=== PATIENT | male | born 1930 | race Caucasian/White ===

== ENCOUNTER → 2017-09-05 | Outpatient (CLI) | payer MEDICARE, OTHER ==
[~2017-09-05] MED LIST: ASPI81CH PO; ATEN25 PO; ATEN50 PO; ATOR20 PO; Avastin25 MG/ML INJ; ISOMON60ER PO; Isosorbide Mono60 MG PO; LEVFLO500 PO; Preservision A1 EACH PO; RANO500T PO; TORSE20 PO
== END ==
LOC: LAB 12:13
DX: Z48.817 Encounter for surgical aftercare following surgery on the skin and subcutaneous tissue (principal); L08.9 Local infection of the skin and subcutaneous tissue, unspecified
CPT/HCPCS: 87070; 87077; 87186; 87205

== ENCOUNTER 2019-04-30 05:53 | Inpatient (IN) | payer MEDICARE, OTHER ==
[~2019-04-30] VITALS: Ht 172.7 cm; Wt 76.0 kg
[2019-04-30] MEDS ORDERED: METO25ER PO (06:40)
--- NOTE | 2019-04-30 10:08 | NUR ---
PT ARRIVED BACK TO RECOVERY ROOM IN BED. RIGHT GROIN SITE SOFT NON-TENDER WITH NO HEMATOMA AND SLIGHT TRACK OOZING NOTED; INTACT STABLE DRESSING. PT DENIES CHEST PAIN AND CALL LIGHT IN REACH.
--- NOTE | 2019-04-30 10:33 | NUR ---
PT DENIES PAIN EXCEPT FOR RIGHT KNEE CHRONIC "SORENESS." PT'S IN ROOM; PT IS DRINKING COFFEE.
--- NOTE | 2019-04-30 11:42 | NUR ---
RIGHT GROIN SITE STILL SOFT NON-TENDER WITH NO HEMATOMA AND NO PULSATILE BLEEDING.
--- NOTE | 2019-04-30 12:02 | NUR ---
DR SRIVASTAVA IN ROOM TO SEE PT AND HIS .
--- NOTE | 2019-04-30 13:18 | NUR ---
PT ARRIVED TO ROOM AT 1250. DRESSING CHANGED WITH GAUZE APPLIED TO BETWEEN LEG AND GROIN TO DETECT FURTHER BLEEDING. HAD TO HOLD PRESSURE FOR 20 MINUTES DUE TO OOZING. NEW THERESE APPLIED WITH WITH LINE DRAWN AROUND OOZING NOTED ON DRESSING. PT'S AWARE OF ROOM ASSIGNMENT
--- NOTE | 2019-04-30 14:07 | NUR ---
PT'S GROIN SITE WITHOUT FURTHER BLEEDING. PT SITTING UP 30 DEGREES AT THIS TIME. DENIES NEEDS OR CONCERNS.
--- NOTE | 2019-04-30 18:19 | NUR ---
SHIFT SUMMARY: PT'S RIGHT GROIN SITE WITHOUT ANY FURTHER OOZING OR SIGNS OF HEMATOMA. PT HAS STOOD AT SIDE OF THE BED WITHOUT FURTHER ISSUE. FAMILY AT BEDSIDE. NO FURTHER NEEDS OR CONCERNS AT THIS TIME.
--- NOTE | 2019-04-30 22:14 | NUR ---
ASSUMED CARE NOTE: ASSUMED CARE OF PT AT 1900, RECEIVED REPORT FROM FRANK HOLLINGSWORTH. PT IS ALERT AND ORIENTED X4. PT CONTINUES TO BE ON RA WITH SPO2 ABOVE 90%. PT DENIES ANY CHEST PAIN, OR SOB. NSR WITH HR IN THE 70'S. RIGHT GRION (CATH INSERTION SITE) IS INTACT AND NO ACTIVE BLEEDING, NOR HEMATOMA NOTED. PT CONTINUES TO USE URINAL. BED AT LOWEST LEVEL, CALL LIGHT WITHIN REACH. WILL CONTINUE TO MONITOR PT T/O SHIFT.
[2019-05-01 03:27] LABS: BASOPHILS ABSOLUTE AUTO 0.04 K/mm3 (0.00-0.23); BASOPHILS PERCENT AUTO 1 % (0-2); EOSINOPHILS ABSOLUTE AUTO 0.26 K/mm3 (0.00-0.68); EOSINOPHILS PERCENT AUTO 3 % (0-6); Hemoglobin 11.1 g/dL (13.5-17.5); IMMATURE GRAN ABSOLUTE AUTO 0.01 K/mm3 (0.00-0.10); IMMATURE GRAN PERCENT AUTO 0 % (0-1); LYMPHOCYTES ABSOLUTE AUTO 1.74 K/mm3 (0.84-5.20); LYMPHOCYTES PERCENT AUTO 22 % (21-46); MONOCYTES ABSOLUTE AUTO 0.72 K/mm3 (0.16-1.47); MONOCYTES PERCENT AUTO 9 % (4-13); Mean Corpuscular HGB Conc 33.6 g/dL (31.5-36.5); Mean Corpuscular Volume 101 fL (80-100); Mean Platelet Volume 10.5 fL (9.1-12.4); NEUTROPHILS ABSOLUTE AUTO 5.26 K/mm3 (1.96-9.15); NEUTROPHILS PERCENT AUTO 66 % (41-73); Platelet Count 152 K/mm3 (150-400); RDW Standard Deviation 45.1 fL (35.1-46.3); Red Blood Cell Count 3.26 M/mm3 (4.30-5.90); White Blood Cell Count 8.03 K/mm3 (4.00-11.30)
[2019-05-01 03:50] LABS: Albumin, Blood 3.1 g/dL (3.4-5.0); Albumin/Globulin Ratio 1.2 (0.8-1.8); Bilirubin, Total 0.5 mg/dL (0.1-1.0); Bun/Creatinine Ratio 12.8 (12.0-20.0); Calcium, Blood 8.3 mg/dL (8.5-10.1); Creatinine, Blood 1.49 mg/dL (0.60-1.20); Globulin, Blood 2.6 g/dL (2.2-4.0); Potassium, Blood 4.8 mmol/L (3.5-5.5); Total Protein, Blood 5.7 g/dL (6.4-8.2)
--- NOTE | 2019-05-01 05:19 | NUR ---
SHIFT SUMMARY: NO SIGNIFICANT CHANGES DURING SHIFT. PT REMAINS ALERT AND ORIENTED. PT CONTINUES TO BE ON RA WITH SPO2 REMAINING ABOVE 90%. NSR WITH HR IN THE 70'S. PT DENIES ANY CHEST PAIN, OR SOB. PT WAS OFFERED ORAL CARE DURING SHIFT, HOWEVER, PT REFUSED. PT HAS BEEN DRINKING THIN LIQUIDS DURING SHIFT W/O ISSUES. PT RIGHT GRION ( CATH INSERTION SITE) IS INTACT WITH NO ACTIVE BLEEDING NOTED, NOR HEMATOMA. PT HAS REPOSITIONED SELF DURING SHIFT. WILL CONTINUE TO MONTIOR PT UNTIL REPORT IS GIVEN TO ONCOMING SHIFT.
--- NOTE | 2019-05-01 07:28 | NUR ---
ASSUMED CARE: PT SITTING UPRIGHT IN BED. ALERT AND ORIENTED. GROIN SITE WITH NO NEW DRAINAGE. NSR ON TELE. DENIES CONCERNS AT THIS TIME.
[2019-05-01] MEDS ORDERED: CLOP75 PO (10:44)
--- NOTE | 2019-05-01 12:00 | NUR ---
PT DC'D HOME WITH INSTRUCTIONS ON FOLLOW UP APPOINTMENTS AND NEW MEDICATIONS. INSTRUCTED PT THAT PLAVIX WILL INCREASE LIKELIHOOD OF BLEEDING AND BRUISING AND TO MONITOR CLOSELY. SEEK MEDICAL ATTENTION IF HITS HEAD OR NOTICES LARGE BRUISING OR BLEEDING THAT WON'T STOP. IV DC'D WNL. AMBULATORY UPON DC AND ESCORTED OUT BY HOSPITAL STAFF. DENIED FURTHER NEEDS OR CONCERNS.
== END 2019-05-01 09:05 | disposition home or self-care (01) | DRG 247 ==
LOC: MHTC 05:53 → ICUE 10:37 → ICUW 10:37 → MHTC 10:37 → ICUE 12:17
PROVIDERS: Internal Medicine Interventional Cardiology; ADMIT Internal Medicine Cardiovascular Disease
PROC: 4A023N7 Measurement of Cardiac Sampling and Pressure, Left Heart, Percutaneous Approach (ICD-10-PCS; principal; 2019-04-30)
PROC: 027034Z Dilation of Coronary Artery, One Artery with Drug-eluting Intraluminal Device, Percutaneous Approach (ICD-10-PCS; 2019-04-30)
PROC: B210YZZ Fluoroscopy of Single Coronary Artery using Other Contrast (ICD-10-PCS; 2019-04-30)
DX: I25.10 Atherosclerotic heart disease of native coronary artery without angina pectoris (principal); R94.39 Abnormal result of other cardiovascular function study; E78.5 Hyperlipidemia, unspecified; I10 Essential (primary) hypertension; Z87.891 Personal history of nicotine dependence; Z79.82 Long term (current) use of aspirin; I25.82 Chronic total occlusion of coronary artery
CPT/HCPCS: 36415; 80053; 85025; 85347; 92978; 93455; 93458; 99152; 99153; A9270; C1725; C1753; C1760; C1769; C1874; C1887; C1894; C9600; J0360; J1644; J2250; J3010; J7030; J7040; Q9967

== ENCOUNTER 2019-08-14 06:58 | Inpatient (IN) | payer OTHER, MEDICARE ==
[~2019-08-14] VITALS: Ht 170.2 cm; Wt 74.4 kg
[~2019-08-14 06:58] MED LIST changes: +CLOP75 PO; +METO25ER PO
[2019-08-14] MEDS ORDERED: TORSE20 PO (07:23)
[2019-08-14 07:40] LABS: BASOPHILS ABSOLUTE AUTO 0.02 K/mm3 (0.00-0.23); BASOPHILS PERCENT AUTO 0 % (0-2); EOSINOPHILS ABSOLUTE AUTO 0.09 K/mm3 (0.00-0.68); EOSINOPHILS PERCENT AUTO 1 % (0-6); Hematocrit 24.5 % (37.0-53.0); Hemoglobin 8.6 g/dL (13.5-17.5); IMMATURE GRAN ABSOLUTE AUTO 0.04 K/mm3 (0.00-0.10); IMMATURE GRAN PERCENT AUTO 1 % (0-1); LYMPHOCYTES ABSOLUTE AUTO 1.79 K/mm3 (0.84-5.20); LYMPHOCYTES PERCENT AUTO 20 % (21-46); MONOCYTES ABSOLUTE AUTO 0.81 K/mm3 (0.16-1.47); MONOCYTES PERCENT AUTO 9 % (4-13); Mean Corpuscular HGB Conc 35.1 g/dL (31.5-36.5); Mean Corpuscular Volume 97 fL (80-100); Mean Platelet Volume 10.1 fL (9.1-12.4); NEUTROPHILS ABSOLUTE AUTO 6.05 K/mm3 (1.96-9.15); NEUTROPHILS PERCENT AUTO 69 % (41-73); Platelet Count 200 K/mm3 (150-400); RDW Coefficient Variation 12.2 % (11.7-14.2); RDW Standard Deviation 43.7 fL (35.1-46.3); Red Blood Cell Count 2.53 M/mm3 (4.30-5.90)
[2019-08-14 07:54] LABS: Alanine Aminotransfer (ALT/SGP 13 U/L (12-78); Albumin/Globulin Ratio 1.1 (0.8-1.8); Anion Gap 10 mmol/L (6-16); Aspartate Aminotrans (AST/SGOT 17 U/L (12-37); Bilirubin, Total 0.4 mg/dL (0.1-1.0); Blood Urea Nitrogen 51 mg/dL (8-24); Bun/Creatinine Ratio 42.9 (12.0-20.0); CO2, Blood 21 mmol/L (21-32); Calcium, Blood 8.2 mg/dL (8.5-10.1); Chloride, Blood 98 mmol/L (98-108); Creatinine, Blood 1.19 mg/dL (0.60-1.20); Globulin, Blood 2.8 g/dL (2.2-4.0); Glomerular Filtration Rate >60 (60-); Glucose, Blood 116 mg/dL (70-99); Potassium, Blood 4.5 mmol/L (3.5-5.5); Sodium, Blood 129 mmol/L (136-145); Total Protein, Blood 5.8 g/dL (6.4-8.2)
[2019-08-14 07:56] LABS: Alk Phos 79 U/L (50-136); Troponin I <0.015 ng/mL (0.000-0.040)
[2019-08-14 08:25] LABS: Source, Urine Clean Catch
[2019-08-14 08:31] LABS: Bilirubin, Urine Neg (Neg); Blood, Urine 1+ (Neg); Glucose Qualitative, Urine Neg (Neg); Ketones, Urine Neg (Neg); Leukocyte Esterase, Urine 1+ (Neg); Nitrite, Urine Neg (Neg); Protein, Urine Neg (Neg); Specific Gravity, Urine 1.015 (1.003-1.022); Urobilinogen, Urine NORM (Normal)
[2019-08-14 08:41] LABS: Appearance, Urine Clear (Clear); Color, Urine Yellow (P-Yellow)
[2019-08-14 08:43] LABS: Bacteria Rare /hpf; Squamous Epithelial Cells Rare /hpf (Few); White Blood Cells, Urine 0-2 /hpf (0-5)
[2019-08-14 11:18] LABS: Hematocrit 22.3 % (37.0-53.0); Hemoglobin 7.8 g/dL (13.5-17.5); Mean Corpuscular HGB 33.9 pg (26.0-34.0); Mean Corpuscular Volume 97 fL (80-100); Mean Platelet Volume 10.1 fL (9.1-12.4); Platelet Count 188 K/mm3 (150-400); RDW Coefficient Variation 12.3 % (11.7-14.2)
[2019-08-14 14:18] LABS: Hematocrit 21.2 % (37.0-53.0); Hemoglobin 7.4 g/dL (13.5-17.5); Mean Corpuscular HGB 33.6 pg (26.0-34.0); Mean Corpuscular HGB Conc 34.9 g/dL (31.5-36.5); Mean Corpuscular Volume 96 fL (80-100); Mean Platelet Volume 10.1 fL (9.1-12.4); Platelet Count 192 K/mm3 (150-400); RDW Coefficient Variation 12.3 % (11.7-14.2); RDW Standard Deviation 42.6 fL (35.1-46.3); White Blood Cell Count 9.54 K/mm3 (4.00-11.30)
--- NOTE | 2019-08-14 17:48 | NUR ---
SHIFT SUMMARY. 1119 PT ADMITTED TO MEDICAL FLOOR VIA [place]. PT WAS ABLE TO SELF TRANSFER TO BED ALTHOUGH REPORTED FEELING DIZZY AND HAD UNSTEADY GAIT. A&OX4, QUINAULT, PLEASANT. FAMILY AT BEDSIDE. PT DENIES PAIN, SOB, N/V. PT REPORTS DARK STOOLS PRIOR TO ADMIT. LUNGS CLEAR. DR. GALLAGHER CONSULTED THIS AFTERNOON. 1 UNIT PRBC INFUSING AT THE TIME OF THIS NOTE. PT TOLERATING CLEAR LIQUIDS, PT EDUCATED EGD TOMORROW AND SHOULD REMAIN NPO AT MIDNIGHT. NO NEW CHANGES OR CONCERNS.
--- NOTE | 2019-08-14 19:39 | NUR ---
1845 PT C/O CHEST PAIN, DIAPHORETIC, CHECKED VS AND BP DROPPED TO 86/28, TELE REPORTED ST DEPRESSION THAT INCREASED AT TIME OF C/O CHEST PAIN. [address] LINDSAY NOTIFIED. RECIEVED ORDERS FOR EKG, NITRO, 500ML BOLUS, TROPONIN Q6 X3, ICU TRANSFER AND CARDIOLOGY CONSULT. 1900 CHEST PAIN RESOLVED WITHOUT INTERVENTION. BOLUS STARTED. BLOOD TRANSFUSION ALMOST COMPLETE. 1910 REPORT GIVEN TO ICU. 191 CARDIOLOGY CONSULT CALLED TO CELL PHONE. EKG COMPLETED. 1931 PT TRANSFERED TO ICU VIA BED, FAMILY AT BEDSIDE. PT C/O CHEST PAIN AT TIME OF TRANSFER.
--- NOTE | 2019-08-14 19:57 | NUR ---
PT TO ROOM ICU 6. PT A+O, BP 103/50'S, HR 70'S. PT C/O MID CP OF 12/30 FLUCTUATING BETWEEN 2-[address] LERNER CURRENTLY AT BEDSIDE.
--- NOTE | 2019-08-14 20:56 | NUR ---
Echocardiogram completed.
[2019-08-14 21:08] LABS: Hematocrit 24.5 % (37.0-53.0); Hemoglobin 8.3 g/dL (13.5-17.5); Mean Corpuscular HGB 31.8 pg (26.0-34.0); Mean Corpuscular HGB Conc 33.9 g/dL (31.5-36.5); Mean Corpuscular Volume 94 fL (80-100); RDW Coefficient Variation 14.5 % (11.7-14.2); RDW Standard Deviation 49.8 fL (35.1-46.3); Red Blood Cell Count 2.61 M/mm3 (4.30-5.90); White Blood Cell Count 12.86 K/mm3 (4.00-11.30)
[2019-08-14 21:25] LABS: Mean Platelet Volume 10.3 fL (9.1-12.4); Platelet Count 145 K/mm3 (150-400)
--- NOTE | 2019-08-14 21:42 | NUR ---
DR. GALLAGHER: SPOKE WITH DR. GALLAGHER FOR SECOND TIME THIS EVENING RE: PT'S CBC RESULTS. DR. GALLAGHER GIVEN RESULTS AND NO NEW ORDERS FOR BLOOD ADMIN. NEW ORDER TO CHANGE PT FROM SHORT STAY ICU STATUS TO INPATIENT ICU STATUS. PLAN FOR ENDOSCOPY AT 0800 TOMORROW MORNING.
--- NOTE | 2019-08-15 00:19 | NUR ---
DR. GALLAGHER: CALL FROM DR. GALLAGHER FOR NEW ORDER TO TRANSFUSE 1u PRBC NOW. CBC ONCE UNIT IS FINISHED. CONTINUE TROPONIN LEVEL AT 0200.
--- NOTE | 2019-08-15 03:41 | NUR ---
DR. LERNER NOTIFIED: UPDATED ON TROPONIN OF 0.523 AND REPEAT EKG. VERBAL ORDER TO REPEAT CBC AFTER CURRENT UNIT OF BLOOD IS FINISHED; REPEAT BLOOD TRANSFUSIONS FOR A Hgb OF AT LEAST 10. DO NOT REPEAT TROPONIN UNTIL AFTER ENDOSCOPY.
--- NOTE | 2019-08-15 05:34 | NUR ---
NEAR SYNCOPE: PT REQUESTED TO SIT UP SO HE COULD CHECK HIS PHONE. PT WAS BROUGHT UP INTO A SITTING POSITION USING THE BED CONTROLS. PT WAS TEXTING ON HIS PHONE AND THIS RN WALKED INTO ROOM TO ASSIST FOOT PIECE ASSEMBLER FOR BLOOD DRAW, PT'S HEAD FELL FORWARD AND PT'S HR WAS 42-45. PT'S SKIN WAS DIAPHORETIC. PT WAS BROUGHT BACK INTO A SUPINE POSITION AND DID NOT LOSE FULL CONSCIOUSNESS. PT DENIED CP AND STATED, "I GOT ALL SWEATY". PT HR THEN RETURNED BACK TO 70'S. BP STABLE. PT REMAINING IN SUPINE SEMI-BARRERA'S POSITION. PT CURRENTLY BACK ON HIS PHONE.
[2019-08-15 05:38] LABS: Hematocrit 25.7 % (37.0-53.0); Hemoglobin 8.7 g/dL (13.5-17.5); Mean Corpuscular HGB 30.5 pg (26.0-34.0); Mean Corpuscular HGB Conc 33.9 g/dL (31.5-36.5); Mean Platelet Volume 9.6 fL (9.1-12.4); Platelet Count 158 K/mm3 (150-400); RDW Coefficient Variation 18.5 % (11.7-14.2); RDW Standard Deviation 60.2 fL (35.1-46.3); Red Blood Cell Count 2.85 M/mm3 (4.30-5.90); White Blood Cell Count 13.28 K/mm3 (4.00-11.30)
[2019-08-15 05:39] LABS: Mean Corpuscular Volume 90 fL (80-100)
[2019-08-15 05:57] LABS: Anion Gap 6 mmol/L (6-16); Blood Urea Nitrogen 41 mg/dL (8-24); CO2, Blood 21 mmol/L (21-32); Calcium, Blood 7.7 mg/dL (8.5-10.1); Chloride, Blood 105 mmol/L (98-108); Creatinine, Blood 1.08 mg/dL (0.60-1.20); Glomerular Filtration Rate >60 (60-); Glucose, Blood 97 mg/dL (70-99); Potassium, Blood 4.6 mmol/L (3.5-5.5); Sodium, Blood 132 mmol/L (136-145)
--- NOTE | 2019-08-15 06:14 | NUR ---
DR. GALLAGHER NOTIFIED: RE: H&H, TROPONIN, NEAR SYNCOPAL EPISODE, AND EKG CHANGES AND THAT DR. LERNER WAS ALSO NOTIFIED. NO NEW ORDERS GIVEN AT THIS TIME BUT STATED WILL BE IN TO THE UNIT SHORTLY. PT CURRENTLY INTERMITTANTLY SLEEPING. HR 70'S, BP 117/48, SATS 96% ON 2L.
--- NOTE | 2019-08-15 07:40 | NUR ---
VERIFIED WITH PATIENT PLANNED EGD. PATIENT REPORTS NPO SINCE BEFORE MIDNIGHT EXCEPT FOR SIPS OF WATER. ALERT, ANSWERS QUESTIONS APPROPRIATELY.
--- NOTE | 2019-08-15 12:15 | NUR ---
PT CARE STARTED WITH DAY SURG STAFF IN ROOM WAITING FOR EGD. DR GALLAGHER IN AND EGD DONE PER DAY SURG CHARTING AND TIMING. PT VS WERE SL LABILE BUT MANNAGED NOTED PER ANESTHESIA. SEE DR HERMOSILLO PROGRESS NOTE FOR DETAILS. PT SLOW TO AWAKEN POST PROCEDURE AND CONTINUED TO REQUIRE NC O2 AND MASK OVER THAT TO MAINTAIN SATS. PT NOTED SOME CHEST PRESSURE/PAIN THAT RANGES 1-3/10 AND WILL WAS ADDRESSED WITH DR LERNER AND MEDS GIVEN INDICATED POST EGD ALLOWED WITH PT SAFETY. PT FALLED TO SLEEP LEFT ALONE AND WILL AWAKEN EASILY AND FOLLOW COMMANDS. PT VOIDED PRE EGD AND WAS DARK YELLOW AND CONSENTRATED. BLOOD WAS OBTAINED AND STARTED JUST POST EGD PER ORDER AND WILL FOLLOW UP WITH LABS ORDERED PER DR GALLAGHER. NS TKO WITH BLOOD TRANSFUSION. FAMILY WAS INFORMED BY DR GALLAGHER OF PROCEDURE RESULTS AND LATER BY RN AND THEN INVITED IN TO SEE PT FOR VISIT WHICH WAS ONLY FOR SHORT PERIOD DUE TO PT SLEEPINESS.
--- NOTE | 2019-08-15 12:47 | NUR ---
PT CONT TO SLEEP, EASILY AROUSED AND REMAINS ON SUPPLEMENTAL O2. VSS. BLOOD COMPLETED. FAMILY AGAIN IN TO VISIT BUT DID NOT AWAKEN PT. CBC TO FOLLOW 1400.
[2019-08-15 14:42] LABS: BASOPHILS ABSOLUTE AUTO 0.04 K/mm3 (0.00-0.23); BASOPHILS PERCENT AUTO 0 % (0-2); EOSINOPHILS PERCENT AUTO 0 % (0-6); Hematocrit 33.7 % (37.0-53.0); Hemoglobin 11.2 g/dL (13.5-17.5); IMMATURE GRAN ABSOLUTE AUTO 0.06 K/mm3 (0.00-0.10); IMMATURE GRAN PERCENT AUTO 0 % (0-1); LYMPHOCYTES ABSOLUTE AUTO 0.83 K/mm3 (0.84-5.20); LYMPHOCYTES PERCENT AUTO 5 % (21-46); MONOCYTES ABSOLUTE AUTO 0.77 K/mm3 (0.16-1.47); MONOCYTES PERCENT AUTO 4 % (4-13); Mean Corpuscular HGB 30.3 pg (26.0-34.0); Mean Corpuscular HGB Conc 33.2 g/dL (31.5-36.5); Mean Corpuscular Volume 91 fL (80-100); NEUTROPHILS ABSOLUTE AUTO 15.81 K/mm3 (1.96-9.15); NEUTROPHILS PERCENT AUTO 90 % (41-73); Platelet Count 166 K/mm3 (150-400); RDW Coefficient Variation 18.4 % (11.7-14.2); RDW Standard Deviation 60.6 fL (35.1-46.3); White Blood Cell Count 17.51 K/mm3 (4.00-11.30)
--- NOTE | 2019-08-15 14:50 | NUR ---
1400 PT INSISTED TO GET OOB TO BSC FOR BM. THE COACHED NOT TO STRAIN, REMAINED ON O2 AT 5L PASSED MED. TARRY STOOLS. PT WEAK BUT ABLE TO STAND AND ASSISTED BACK TO BED. SR IN MID 80- RANGE NOTED WITH OCC. PAC'S. PT CONT TO FALL TO SLEEP WHEN LEFT ALONE, AND O2 IS 5L VIA MOUTH.
--- NOTE | 2019-08-15 15:55 | NUR ---
DR NICHOLASTRATE CALLED RE PT SAT REMAINS LOW EVEN WITH 5L NC. PT HAS SOME INC CRACKLES IN NOW L AND R SIDES FROM THIS AM. PT DENIES DISTRESS BUT DUE TO DEMAND ISCHEMIA ISSUES, ATTEMPTING TO KEEP SATS > 90+ TO MINIMIZE HEART COMPLICATIONS. PT FAMILY IS IN TO VISIT AND WILL FOLLOW SATS.
--- NOTE | 2019-08-15 16:07 | NUR ---
PT ENCOURAGED TO COUGH AND DEEP BREATH WHICH STIMULATED A COUGH. SCAN AMOUNT OF VERY THIN BLOODY SECREATIONS EXPECTURATED. PT HAS BEEN O2 AT 5L AND THIS IS A POSSIBLE CAUSE, WILL MONITOR PT STATUS.
--- NOTE | 2019-08-15 16:46 | NUR ---
PT FAMILY REMAIN AT BEDSIDE. PT IS PERIODICALLY EXPECTORATING SMALL AMOUNT OF VERY THIN AND BLOOD STAINED SPUTUM. SATS SL IMPROVED NOTED. VS ARE BELOW LASIX PARAMETERS AND YET HAS NOT BEEN GIVE. NS AT 75ML AND PROTONIX GTT AT 10ML VIA R AC SITE. PT IS FATIGUED BUT REMAINS ALERT AND COOP THIS AFTERNOON.
--- NOTE | 2019-08-15 18:07 | NUR ---
1745 DR ISTRATE CALLED AND NEW ORDERD OF 250ML NS, CXR, CBC GIVEN. PT BP REMAINS LOW AND SATS ARE ADIQUATE. PT REMAINS A/O AND WILL FOLLOW STATUS. BP REMAINS LOW BUT IMPROVING SL NOTED AND WILL FOLLOW.
--- NOTE | 2019-08-15 18:16 | NUR ---
BOLUS HAS COMPLETED AND PT BE MID 80N RANGE WITH MAP 60. SATS 93% CXR DONE AND LABS TO FOLLOW.
[2019-08-15 18:33] LABS: BASOPHILS ABSOLUTE AUTO 0.02 K/mm3 (0.00-0.23); BASOPHILS PERCENT AUTO 0 % (0-2); EOSINOPHILS PERCENT AUTO 0 % (0-6); Hematocrit 29.7 % (37.0-53.0); Hemoglobin 10.3 g/dL (13.5-17.5); IMMATURE GRAN ABSOLUTE AUTO 0.06 K/mm3 (0.00-0.10); IMMATURE GRAN PERCENT AUTO 0 % (0-1); LYMPHOCYTES ABSOLUTE AUTO 0.51 K/mm3 (0.84-5.20); LYMPHOCYTES PERCENT AUTO 3 % (21-46); MONOCYTES PERCENT AUTO 6 % (4-13); Mean Corpuscular HGB 30.8 pg (26.0-34.0); Mean Corpuscular HGB Conc 34.7 g/dL (31.5-36.5); Mean Corpuscular Volume 89 fL (80-100); Mean Platelet Volume 10.4 fL (9.1-12.4); NEUTROPHILS ABSOLUTE AUTO 15.71 K/mm3 (1.96-9.15); NEUTROPHILS PERCENT AUTO 91 % (41-73); Platelet Count 146 K/mm3 (150-400); RDW Coefficient Variation 18.3 % (11.7-14.2); RDW Standard Deviation 58.6 fL (35.1-46.3); Red Blood Cell Count 3.34 M/mm3 (4.30-5.90)
--- NOTE | 2019-08-15 20:01 | NUR ---
DR. LINDSAY NOTIFIED: BEDSIDE REPORT FROM MANUEL RN WHO STATED DR. LINDSAY WAS DUE TO COME BY TO SEE THE PT AND ADDRESS LASIX ORDER IN R/T HYPOTENSION, PT C/ HIGHER DEMAND FOR 02 WHO IS CURRENLTY REQUIRING 6L HIFLO N/C IN THE MOUTH TO KEEP SATS AT >90%. DR. LINDSAY NOTIFED AT 1954 AND STATED TO GIVE NS 250 mL BOLUSES X2 IF BP DOES NOT INPROVED CALL ONCOMING HOSPITALIST. DO NOT GIVE LASIX. DO GIVE PLAVIX THIS EVENING DOSE PRESCRIBED.
--- NOTE | 2019-08-15 20:41 | NUR ---
CALL BACK FROM DR. LINDSAY: NEW ORDERS TO CONSULT SIZING SPRAYER. START LEVOPHED gtt AND TITRATE FOR MAPS >65. DR. KO NOTIFIED AND IS ON HIS WAY IN TO PLACE CENTRAL LINE.
[2019-08-15 21:57] LABS: Hematocrit 27.1 % (37.0-53.0); Hemoglobin 9.3 g/dL (13.5-17.5)
--- NOTE | 2019-08-16 00:27 | NUR ---
UPDATE: DR. VALDOVINOS TO BEDSIDE AT 2119, EXPLAINED PROCEDURE TO PT. PT WITH VERBAL UNDERSTANDING. CENTRAL LINE WAS PLACED TO RIGHT FEMORAL. PT TOLERATED WELL. DR. VALDOVINOS GAVE VERBAL OKAY TO USE CL AND VERBAL TO START LEVOPHED AT 5mcg/min. COMDOM CATHETER PLACED. LASIX GIVEN. CURRENTLY LEVOPHED REMAINS AT 5mcg/min, VSS C/ MAPS >65. PT HAS DENIED CP PAIN T/O SHIFT THUS FAR. PT LYING IN BED TALKING ON CELL PHONE. CALL LIGHT WITHIN REACH. WILL CONTINUE TO MONITOR.
[2019-08-16 04:53] LABS: BASOPHILS ABSOLUTE AUTO 0.03 K/mm3 (0.00-0.23); BASOPHILS PERCENT AUTO 0 % (0-2); EOSINOPHILS ABSOLUTE AUTO 0.01 K/mm3 (0.00-0.68); EOSINOPHILS PERCENT AUTO 0 % (0-6); Hematocrit 26.9 % (37.0-53.0); Hemoglobin 9.4 g/dL (13.5-17.5); IMMATURE GRAN ABSOLUTE AUTO 0.12 K/mm3 (0.00-0.10); IMMATURE GRAN PERCENT AUTO 1 % (0-1); LYMPHOCYTES ABSOLUTE AUTO 1.47 K/mm3 (0.84-5.20); LYMPHOCYTES PERCENT AUTO 6 % (21-46); MONOCYTES ABSOLUTE AUTO 0.91 K/mm3 (0.16-1.47); MONOCYTES PERCENT AUTO 4 % (4-13); Mean Corpuscular HGB 30.9 pg (26.0-34.0); Mean Corpuscular HGB Conc 34.9 g/dL (31.5-36.5); Mean Corpuscular Volume 89 fL (80-100); Mean Platelet Volume 10.2 fL (9.1-12.4); NEUTROPHILS ABSOLUTE AUTO 20.66 K/mm3 (1.96-9.15); NEUTROPHILS PERCENT AUTO 89 % (41-73); Platelet Count 185 K/mm3 (150-400); RDW Coefficient Variation 18.3 % (11.7-14.2); RDW Standard Deviation 58.5 fL (35.1-46.3); Red Blood Cell Count 3.04 M/mm3 (4.30-5.90)
[2019-08-16 05:08] LABS: Bun/Creatinine Ratio 24.6 (12.0-20.0); Calcium, Blood 8.1 mg/dL (8.5-10.1); Creatinine, Blood 1.34 mg/dL (0.60-1.20); Potassium, Blood 4.1 mmol/L (3.5-5.5)
--- NOTE | 2019-08-16 06:36 | NUR ---
SHIFT SUMMARY: PT HAD A MUCH IMPROVED NIGHT COMPARED TO LAST. PT VITALS STABLE C/ LEVOPHED gtt NOW AT 8 mcg/min. PT WAS ABLE TO REST T/O NOC GETTING INTERMITTANT SLEEP. PT WITH ONE BM BUT ONLY A SMEAR OF BLACK TARRY STOOL. PT DID GET DIZZY AND SLIGHT DIAPHORETIC WHEN BROUGHT UP TO A SITTING POSITION USING BED CONTROLS. THE REMAINDER OF THE NIGHT PT REMAIN IN SEMI BARRERA POSITION. WILL REPORT OFF TO DAY RN. CONTINUE TO MONITOR.
--- NOTE | 2019-08-16 12:47 | NUR ---
PT JSUT FINISHING LUNCH AND C/O NON-DESCRIPT PAIN TO L SIDE UNDER RIBS THAT WAS IMPROVED WITH REPOSITIONING. LEVOPHED GTT HAS BEEN INCREASED NOTED AND WILL FOLLOW.
--- NOTE | 2019-08-16 16:13 | NUR ---
PT O2 NEEDS HAVE GONE UP OVER THE COURSE OF THE DAY FROM [address] KATE NOTIFIED AND WILL EVALUATE LABS BEFORE INTERVENTION.
[2019-08-16 16:32] LABS: Hematocrit 24.8 % (37.0-53.0); Hemoglobin 8.4 g/dL (13.5-17.5)
--- NOTE | 2019-08-16 18:06 | NUR ---
PT HAS JUST GIVEN LASIX AND NEW ORDER JUST RECIEVED FROM DR GALLAGHER FOR PRBC TIMES 1 SLOWLY. PT O2 SAT CONT 89-92 AT TIMES AND PT WILL INC O2 TO 6L FOR NOW. PT IS FEELING TIRED AND FATIGUED AND DID NOT EAT MUCH SUPPER. PT RANDOMLY WILL COUGH UP SOME BLOODY SPUTUM AND OTHER TIMES WILL HAVE A DRY COUGH. LEVOPHED GTT AT 10MCG, NS 10, PROTONIX AT 10. PRBC TO BE [place]. I/O NOTED. FAMILY HAS BEEN INTO VISIT.
--- NOTE | 2019-08-16 18:47 | NUR ---
PRBC STARTED AT 90ML FOR APPROX 4 HOUR SLOW RUN. PT SATS AT 93 WITH O2 CURRENTLY AT 6L AND LASIX DIURESIS HAS START. PT SLEEPING.
--- NOTE | 2019-08-16 22:00 | NUR ---
ASSUMPTION OF CARE ASSUMED CARE OF PT @ 1900, PT RESTING IN BED, AROUSABLE, SOME CONFUSION UPON WAKENING BUT REDIRECTABLE AND THEN ORIENTED TO SELF, PLACE, EVENT AND FOLLOWING DIRECTIONS. PT DENIES CP OR SOB. O2 SATURATIONS MAINTAINED>90% ON 5L PER NC, MONITOR SHOWS SINUS RHYTHM WITH HR 80'S-90'S, LEVO @ 10 TO MAINTAIN MAPS>65. PROTONIX GTT INFUSING @ 10ml/hr. 1 UNIT PRBC CURRENTLY INFUSING, CALL PLACED TO DR KATE TO UPDATE ON CURRENT BLOOD TRANSFUSION, 2200 H&H CANCELLED, WILL DRAW WITH MORNING LABS. PT DENIES ANY NEEDS AT THIS TIME. CALL LIGHT WITHIN REACH.
[2019-08-17 03:16] LABS: BASOPHILS ABSOLUTE AUTO 0.02 K/mm3 (0.00-0.23); BASOPHILS PERCENT AUTO 0 % (0-2); EOSINOPHILS ABSOLUTE AUTO 0.02 K/mm3 (0.00-0.68); EOSINOPHILS PERCENT AUTO 0 % (0-6); Hematocrit 26.9 % (37.0-53.0); Hemoglobin 9.2 g/dL (13.5-17.5); IMMATURE GRAN ABSOLUTE AUTO 0.06 K/mm3 (0.00-0.10); IMMATURE GRAN PERCENT AUTO 0 % (0-1); LYMPHOCYTES ABSOLUTE AUTO 1.39 K/mm3 (0.84-5.20); LYMPHOCYTES PERCENT AUTO 9 % (21-46); MONOCYTES ABSOLUTE AUTO 0.89 K/mm3 (0.16-1.47); MONOCYTES PERCENT AUTO 6 % (4-13); Mean Corpuscular HGB 30.7 pg (26.0-34.0); Mean Corpuscular HGB Conc 34.2 g/dL (31.5-36.5); Mean Corpuscular Volume 90 fL (80-100); NEUTROPHILS ABSOLUTE AUTO 13.73 K/mm3 (1.96-9.15); NEUTROPHILS PERCENT AUTO 85 % (41-73); Platelet Count 141 K/mm3 (150-400); RDW Coefficient Variation 17.5 % (11.7-14.2); RDW Standard Deviation 57.5 fL (35.1-46.3); White Blood Cell Count 16.11 K/mm3 (4.00-11.30)
[2019-08-17 03:34] LABS: Albumin, Blood 2.4 g/dL (3.4-5.0); Albumin/Globulin Ratio 0.8 (0.8-1.8); Bilirubin, Total 0.8 mg/dL (0.1-1.0); Bun/Creatinine Ratio 23.8 (12.0-20.0); Creatinine, Blood 1.22 mg/dL (0.60-1.20); Total Protein, Blood 5.4 g/dL (6.4-8.2)
--- NOTE | 2019-08-17 06:31 | NUR ---
SHIFT SUMMARY NO ACUTE CHANGES THIS SHIFT. PT RESTED T/O NIGHT, AROUSABLE, SOME CONFUSION UPON WAKING BUT REMAINS REDIRECTABLE AND BECOMES ORIENTED. PT ON 5L PER NC TO MAINTAIN O2 SATURATIONS>90%, SOME HEMOPTYSIS NOTED THIS AM. MONITOR SHOWS SINUS RHYTHM, HR 80'S, LEVO TITRATED TO MAINTAIN MAPS>65 (SEE FLOWSHEET) CURRENTLY INFUSING @ 6mcg/min. CL TO R GROIN REMAINS IN TACT. PT URINATING VIA CONDOM CATH WITH GOOD OUTPUT. DENIES GI ISSUES. CALL LIGHT WITHIN REACH, PT MAKING NEEDS KNOWN.
--- NOTE | 2019-08-17 09:50 | NUR ---
DR. KATE AT BEDSIDE, VERBALLY ORDERED TO HOLD METOPROLOL AND IMDUR WHILE ON LEVOPHED.
--- NOTE | 2019-08-17 10:40 | NUR ---
PT C/O 12/30 INTERMITTENT ABD PAIN, DULL AND ACHING. REPORTED THIS TO DR. KATE, RECEIVED ORDERS FOR REPEAT H/H AT 1200, TROPONIN AND EKG NOW, AND LASIX 40 MG IVP ONCE.
--- NOTE | 2019-08-17 11:17 | NUR ---
CONDOM CATHETER: NEW CONDOM CATHETER APPLIED AT REQUEST OF PRIMARY RN. PT VERBALIZES UNDERSTANDING OF THIS DEVICE & IS AGREEABLE TO PLACMENT.
--- NOTE | 2019-08-17 11:27 | NUR ---
PT FEELING CHILLED, SHIVERING. WAS OOB IN CHAIR FROM [phone] THIS MORNING. ALSO C/O 7/10 DULL INTERMITTENT ABD PAIN. NOTIFIED DR. KATE IN PERSON, NO NEW ORDERS AT THIS TIME. PT HAS H/H DUE TO BE DRAWN AT 1200, WILL EVALUATE THEN.
--- NOTE | 2019-08-17 12:10 | NUR ---
REASSESMENT: PT PLACED ON OXYMIXER AT 10 L/MIN HE WAS UNABLE TO MAINTAIN O2 SATS > 88%. LUNG SOUNDS UNCHANGED FROM THIS MORNING. STILL SHIVERING INTERMITTENTLY. BEING PLACED ON BIPAP. NO APPETITE. NO BM.
--- NOTE | 2019-08-17 12:21 | NUR ---
PT UNABLE TO MAINTAIN O2 SATS > 88%, IS DESATTING TO 82-85% ON 6 L/MIN HUMIDIFIED NC AND HAS POOR RECOVERY WITH ANY ACTIVITY. REQUESTED TO USE OXYMIZER AND/OR BIPAP FROM DR. KATE. PT PLACED ON BIPAP 05/28 WITH 40% FIO2 AT 1215 PER RT. O2 SATS MAINTAINED > 88% AND PT TOLERATING WELL THUS FAR.
[2019-08-17 12:48] LABS: Hematocrit 28.3 % (37.0-53.0); Hemoglobin 9.7 g/dL (13.5-17.5)
--- NOTE | 2019-08-17 15:40 | NUR ---
DR. COLLIER AT BEDSIDE FOR ASSESSMENT, THIS AUTHOR GAVE UPDATE ON PT CONDITION. NO NEW ORDERS AT THIS TIME.
--- NOTE | 2019-08-17 16:00 | NUR ---
REASSESSMENT: AWOKE FROM SHORT NAP A LITTLE CONFUSED, BUT THIS RESOLVED. COUGHING SMALL AMT BLOOD TINGED SPUTUM PERIODICALLY, DR. KATE AWARE. UNABLE TO DRAW BLOOD FROM R GROIN CENTRAL LINE, FLUSHES BEAUTIFULLY. TOLERATING BIPAP WITH BREAKS ON OXYMIZER AT 10 L/MIN. NO BM AT THIS TIME, DENIES DISCOMFORT. DENIES CP.
--- NOTE | 2019-08-17 19:00 | NUR ---
SHIFT SUMMARY: A&O X 2-3 TONIGHT, AND DAUGHTERS AT BEDSIDE. ALTERNATING BETWEEN BIPAP AND OXYMIZER, SEVERELY REY, UNABLE TO TOLERATE DANGLING TO EAT DINNER, BECAME DIZZY. LUNG SOUNDS DIM AT BASES. OFF LEVOPHED AT 1411 TODAY, MAINTAINING BP AND MAP > 65. GOOD UO WITH LASIX. NO BM TODAY. APPETITE FAIR TO POOR, MAY BENEFIT FROM SUPPLEMENT. DENIED CP. INTERMITTENT ABD RESOLVED WITHOUT INTERVENTION. H/H REMAINS STABLE. NAPPED A LITTLE DURING THIS SHIFT, WAS CONFUSED UPON AWAKENING, SINCE RESOLVED.
[2019-08-17 19:53] LABS: Hematocrit 26.1 % (37.0-53.0); Hemoglobin 8.9 g/dL (13.5-17.5)
[2019-08-18 04:18] LABS: BASOPHILS ABSOLUTE AUTO 0.02 K/mm3 (0.00-0.23); BASOPHILS PERCENT AUTO 0 % (0-2); EOSINOPHILS ABSOLUTE AUTO 0.07 K/mm3 (0.00-0.68); EOSINOPHILS PERCENT AUTO 1 % (0-6); Hematocrit 25.4 % (37.0-53.0); Hemoglobin 8.7 g/dL (13.5-17.5); IMMATURE GRAN ABSOLUTE AUTO 0.08 K/mm3 (0.00-0.10); IMMATURE GRAN PERCENT AUTO 1 % (0-1); LYMPHOCYTES ABSOLUTE AUTO 0.99 K/mm3 (0.84-5.20); LYMPHOCYTES PERCENT AUTO 7 % (21-46); MONOCYTES ABSOLUTE AUTO 0.94 K/mm3 (0.16-1.47); MONOCYTES PERCENT AUTO 6 % (4-13); Mean Corpuscular HGB 30.9 pg (26.0-34.0); Mean Corpuscular HGB Conc 34.3 g/dL (31.5-36.5); Mean Corpuscular Volume 90 fL (80-100); Mean Platelet Volume 9.5 fL (9.1-12.4); NEUTROPHILS ABSOLUTE AUTO 12.86 K/mm3 (1.96-9.15); NEUTROPHILS PERCENT AUTO 86 % (41-73); Platelet Count 140 K/mm3 (150-400); RDW Coefficient Variation 17.4 % (11.7-14.2); RDW Standard Deviation 57.1 fL (35.1-46.3); Red Blood Cell Count 2.82 M/mm3 (4.30-5.90); White Blood Cell Count 14.96 K/mm3 (4.00-11.30)
[2019-08-18 04:33] LABS: Albumin, Blood 2.3 g/dL (3.4-5.0); Anion Gap 7 mmol/L (6-16); Blood Urea Nitrogen 35 mg/dL (8-24); Bun/Creatinine Ratio 27.1 (12.0-20.0); CO2, Blood 25 mmol/L (21-32); Calcium, Blood 8.3 mg/dL (8.5-10.1); Chloride, Blood 100 mmol/L (98-108); Creatinine, Blood 1.29 mg/dL (0.60-1.20); Glomerular Filtration Rate 56 (60-); Glucose, Blood 118 mg/dL (70-99); Magnesium, Blood 1.7 mg/dL (1.6-2.4); Phosphorus, Blood 2.3 mg/dL (2.5-4.9); Potassium, Blood 4.2 mmol/L (3.5-5.5); Sodium, Blood 132 mmol/L (136-145)
[2019-08-18 04:52] LABS: PO2 Arterial 54.1 mmHg (80-100); pH Blood Arterial 7.45 (7.35-7.45)
--- NOTE | 2019-08-18 05:30 | NUR ---
SHIFT SUMMARY NO ACUTE CHANGES THIS SHIFT. PT HAS REMAINED ALERT AND ORIENTED WHEN AWAKE WITH PERIODS OF CONFUSION. PT FOLLOWS COMMANDS APPROPRIATELY. PT HAS DENIED PAIN, DISCOMFORT, OR SOB THIS SHIFT. VITAL SIGNS HAVE REMAINED STABLE. PT ON OXYMIZER AT 10L FOR MOST OF THE SHIFT, WITH BIPAP PRN AT 12/6, FIO2 45%. CL TO RIGHT FEMORAL C/D/I WITH PROTONIX INFUSING AT 10 ML/HR, AND NS TKO. ATTENDS IN PLACE FOR INCONTINENCE, BUT PT USING URINAL APPROPRIATELY THIS SHIFT. PT RECIEVED ENEMA THIS SHIFT, CONTINUES TO REPORT NO FEELING OF NEEDING TO HAVE A BM. PT REPOSITIONING SELF IN BED INDEPENDENTLY. PT WITH SOME BLOOD NOTED TO SPUTUM WITH OCCASIONAL COUGHING. NO ACUTE SIGNS OF GI BLEEDING NOTED. NO FAMILY AT BEDSIDE. WILL CONTINUE TO MONITOR AND REPORT OFF TO ONCOMING RN.
--- NOTE | 2019-08-18 07:14 | NUR ---
ASSUMED CARE: RECEIVED BEDSIDE REPORT FROM NOC RN. PT IS AWAKE DURING REPORT AND PARTICIPATES IN DISCUSSION. REVIEWED ORDERS AND MEDICATIONS. CURRENTLY NS RUNNING A TKO FOR PIGGYBACK AND PROTONIX @ 10MG/HR. PT IS CURRENTLY NOTED TO BE ON 7L O2 VIA OXYMIZER, O2 SATS 99%. PT DENIES PAIN, DISCOMFORT OR NEEDS AT THIS TIME. WILL CONTINUE TO MONITOR AND ASSESS FURTHER. CALL LIGHT IN REACH. BED IN LOWEST POSSITION
--- NOTE | 2019-08-18 13:11 | NUR ---
BLOOD PRESSURE AND LASIX DR AT BEDSIDE. PT SBP IS ON THE LOW SIDE. GIVING 20MG LASIX IV INSTEAD OF THE ORDERED 40MG AT THIS TIME. WILL GIVE ANOTHER 20MG AT 1600 IF BP IS BETTER OTHERWISE WILL REASSESS AT 1800.
--- NOTE | 2019-08-18 14:00 | NUR ---
POOR TRANSFER: PT WOKE UP AND CALLED STAFF INTO THE ROOM. PT STATES "THE WATER PILL IS WORKING" AND PROCEDS TO STATE HE ALREADY WENT. ATTEMPTED TO PLACE THE URINAL BUT PT WAS UNABLE TO URINATE MORE. PT IS ASSISTED IN STANDING, BUT IS NOTED TO BE MUCH WEAKER THAN PREVIOUSLY NOTED AND APPEARS TO HAVE SOME DIFFICULTY STANDING UP. UPON TRANSFER PT LEGS APPEAR TO GIVE OUT AND RECLINER WAS QUICKLY PLACED BACK UNDER HIM AND HE WAS ABLE TO SIT AT THE EDGE OF THE RECLINER. MORE STAFF CALLED TO THE ROOM AND PT WAS ASSISTED BACK TO THE BED. PT O2 SATS DECLINED INTO THE MID 80'S AND HAD DIFFICULTY COMING BACK UP SO PLACED PT ON BIPAP. O2 SATS POPED BACK UP TO 92% QUICKLY AT FIO2 OF 45%.
--- NOTE | 2019-08-18 18:54 | NUR ---
SHIFT SUMMARY: PT HAD A VERY GOOD MORNING UP TO THE RECLINER AND WAS ABLE TO HAVE A SHOWER, BUT IT TOOK A LOT OF ENERGY OUT OF HIM FOR THE REMAINDER OF THE DAY. WHEN RETURNING BACK TO THE BED LATER IN THE AFTERNOON PT'S LEGS GAVE OUT AND HE COLLAPSED INTO THE CHAIR. PT WAS PUT ON BIPAP FOR A SHORT TIME TODAY DUE TO HAVING A HARD TIME GETTING HIS SATS BACK UP IN THE 90'S, SEE PREVIOUS RN NOTES. FAMILY HAVE BEEN IN AND OUT VISITING TO DAY ASKING FOR UPDATES AND BEING EDUCATED ON PT CONDITION AND PLAN OF CARE. PT HAS BEEN UNABLE TO HAVE A BM T/O THE DAY ALTHOUGH HE HAS TRIED ON 3 DIFFERENT OCCATIONS. REPORT GIVEN TO NOC RN. CALL LIGHT IN REACH. BED IN LOWEST POISSITION.
--- NOTE | 2019-08-18 19:20 | NUR ---
ASSESSMENT/ASSUMED CARE PT SITTING UP IN BED WITH FAMILY AT BEDSIDE. PT VERY [place]. TO BRING IN HEARING AIDS IN THE MORNING. PT DENIES PAIN AT THIS TIME. LUNGS CLEAR IN UPPEER LOBES BUT FINE CRACKLES IN THE BASES ON 10 LITER O2 VIA OXMIZER. PRODUCTIVE COUGH WITH BROWN SPUTUM. PT STATES,"IT IS A LOT BETTER THAN YESTERDAY. I WAS COUGHING UP BRIGHT RED BLOOD BEFORE". HEART RATE REGULAR. BP STABLE. SKIN DRY AND FRAGILE. DENIES CHEST PAIN OR PRESSURE. BT+ HYPERACTIVE. PT STATES," I KEEP TRYING TO HAVE A BOWEL MOVEMENT BUT THE BED GOLDSTEIN HURTS AND I'M NOT HAVING ANY LUCK". DENIES N/V. CENTRAL LINE TO RIGHT GROIN SITE CLEAR, ALL PORTS FLUSHED WITHOUT DIFFIUCULTY. IV LEFT UPPER ARM 18G SALINE LOCKED, SITE CLEAR. CONDOM CATH PATENT DRAINING YELLOW URINE.
[2019-08-19 03:47] LABS: BASOPHILS ABSOLUTE AUTO 0.01 K/mm3 (0.00-0.23); BASOPHILS PERCENT AUTO 0 % (0-2); EOSINOPHILS PERCENT AUTO 1 % (0-6); Hematocrit 23.9 % (37.0-53.0); Hemoglobin 8.2 g/dL (13.5-17.5); IMMATURE GRAN ABSOLUTE AUTO 0.11 K/mm3 (0.00-0.10); IMMATURE GRAN PERCENT AUTO 1 % (0-1); LYMPHOCYTES PERCENT AUTO 10 % (21-46); MONOCYTES ABSOLUTE AUTO 0.98 K/mm3 (0.16-1.47); MONOCYTES PERCENT AUTO 7 % (4-13); Mean Corpuscular HGB 30.7 pg (26.0-34.0); Mean Corpuscular HGB Conc 34.3 g/dL (31.5-36.5); Mean Corpuscular Volume 90 fL (80-100); NEUTROPHILS ABSOLUTE AUTO 11.42 K/mm3 (1.96-9.15); NEUTROPHILS PERCENT AUTO 81 % (41-73); Platelet Count 182 K/mm3 (150-400); RDW Coefficient Variation 17.4 % (11.7-14.2); RDW Standard Deviation 56.7 fL (35.1-46.3); Red Blood Cell Count 2.67 M/mm3 (4.30-5.90); White Blood Cell Count 14.12 K/mm3 (4.00-11.30)
[2019-08-19 04:12] LABS: Calcium, Blood 8.1 mg/dL (8.5-10.1); Creatinine, Blood 1.25 mg/dL (0.60-1.20); Potassium, Blood 3.6 mmol/L (3.5-5.5)
[2019-08-19 04:29] LABS: Troponin I 8.79 ng/mL (0.000-0.040)
--- NOTE | 2019-08-19 05:58 | NUR ---
SHIFT SUMMARY PT AWAKE, SITTING UP IN BED WATCHING TV. DENIES PAIN OR DISCOMFORT. PT EXPRESSED CONCERN REGARDING WHY HE IS HERE. PT VERY [place]. ASKED LAST NIGHT TO BRING IN HIS HEARING AIDS THIS MORNING. TRIED TO EXPLAIN WHY HE IS HERE AND WHAT HAS GONE ON. PT UNABLE TO UNDERSTAND POSSIBLY DUE TO [place]. PT CONT TO HAVE WEAKNESS TO LEFT SIDE WITH POOR FINE MOTOR FUNCTION TO LEFT HAND AND ARM. PT USED BIPAP FOR ABOUT 4 HOURS DURING THE NIGHT BUT IS NOW BACK ON 10 LITERS VIA OXMIZER. DENIES SOB, OCC COUGH WITH BROWN SPUTUM. PT MOVING AND TURNING SELF IN BED. CENTRAL LINE TO RIGHT GROIN, SITE CLEAR, CLAVES CHANGED WITH AM LABS. CONDOM CATH ON. PT HAVING YELLOW URINE OUTPUT. REPORT TO ON COMING NURSE
--- NOTE | 2019-08-19 07:37 | NUR ---
Met with pt during AM report with assigned RN. Pt is okay with having student resume care.
--- NOTE | 2019-08-19 08:00 | NUR ---
iNITIAL ASSESSMENT Pt AO X3, pleasant affect. Pt experiencing slight left sided deficit in arm and hand. Pt O2 sats >90 on 10 lits oxm. Fine crackles noted bilaterally in lower lobes. Pt is experiencing dyspnea on exertion. Pt is not experiencing any pain in abdomen on palpation. Abdomen slightly distended. Pt does not complain of pain at this time. ST depression noted on tele strip. Family is at bedside. Call light is in reach and bed in lowest position.
--- NOTE | 2019-08-19 08:05 | NUR ---
INITIAL ASSESSMENT PATIENT [place]. PATIENT ALERT AND ORIENTED EXCEPT TO DATE AND TIME. PATIENT 2 PERSON ASSIST TO BSC. PATIENT HAS SLIGHT L SIDED WEAKNESS. PATIENT REPORTS NUMBNESS IN L HAND. PATIENT WEAK BUT ABLE TO MOVE ALL EXTREMITIES. PATIENT AFEBRILE. PATIENT DENIES PAIN OR DISCOMFORT. PATIENT SATTING 90% AND GREATER ON 10 L OXYMIZER. LUNGS CLEAR IN UPPER LOBES AND DIMINISHED WITH FINE CRACKLES IN LOWER LOBES. PATIENT VERY SOB WITH EXERTION. PATIENT COUGHING UP SMALL AMOUNTS OF THICK, BROWN SPUTUM. PATIENT IN SR WITH ST DEPRESSION NOTED. HR 80S TO 90S. BP STABLE. ABDOMEN MILDLY DISTENDED, FIRM WITH HYPERACTIVE BS NOTED. PATIENT HAD LARGE, BLACK, TARRY BM THIS MORNING AFTER NO BM FOR 7 DAYS. PATIENT VOIDING ANDREA COLORED URINE INTO CONDOM CATH. SKIN IS FRAGILE AND BRUISED. IVS FLUSHED AND SALINE LOCKED. BED LOW, CALL LIGHT IN REACH. AT BEDSIDE. WILL CONTINUE TO MONITOR PATIENT FREQUENTLY THROUGHOUT SHIFT.
--- NOTE | 2019-08-19 10:49 | NUR ---
DR. KATE AND DR. COLLIER UPDATED ON PATIENT STATUS. INFORMED THAT PATIENT HAD LARGE, BLACK, TARRY BM THIS MORNING AFTER HAVING NO BM FOR 7 DAYS. INFORMED THAT PATIENT HAS ST DEPRESSION, WHICH THEY WERE BOTH ALREADY AWARE OF.
--- NOTE | 2019-08-19 12:00 | NUR ---
PATIENT RESTING IN BED QUIETLY. PATIENT AFEBRILE. PATIENT REMAINS IN SR WITH ST DEPRESSION. HR 80S TO 90S. BP STABLE. PATIENT HAS BEEN SATTING 90% AND GREATER ON 5 L HF TO 10 L OYXMIZER. PATIENT CONTINUES TO BECOME VERY SOB WITH ANY EXERTION. PATIENT DESATS QUICKLY. PATIENT HAS NO COMPLAINTS OF PAIN AT THIS TIME. WILL CONTINUE TO MONITOR. AND DAUGHTER AT BEDSIDE.
--- NOTE | 2019-08-19 16:04 | NUR ---
PATIENT TAKING A NAP. PATIENT AFEBRILE. NO CHANGE IN NEURO STATUS. HR 80S TO LOW 100S. BP STABLE. PATIENT SATTING 90% AND GREATER ON 10 L OXYMIZER. PATIENT DESATS TO 70S QUICKLY WITH EXERTION. CENTRAL LINE DC'D. SITE REMAINS WNL. NO OTHER ACUTE CHANGES TO NOTE ON AT THIS TIME. WILL CONTINUE TO MONITOR.
--- NOTE | 2019-08-19 16:33 | NUR ---
PATIENT TAKEN TO CT BY SKILLED NURSING CASE MANAGER.
--- NOTE | 2019-08-19 16:50 | NUR ---
PATIENT BACK FROM CT.
--- NOTE | 2019-08-19 18:22 | NUR ---
SHIFT SUMMARY PATIENT REMAINED A AND O X 3. PATIENT CONTINUED TO BE DISORIENTED TO MONTH AND YEAR. PATIENT REMAINED [place]. PATIENT REMAINED SLIGHTLY WEAK ON L SIDE THAT R SIDE. PATIENT 2 PERSON ASSIST TO BSC. PATIENT'S LEFT LEG BUCKLED ON THE WAY BACK TO BED. STAFF ABLE TO TRANSFER TO BED. PATIENT REMAINED AFEBRILE. PATIENT HAD NO COMPLAINTS OF PAIN. PATIENT CONTINUED TO COUGH UP SMALL TO MODERATE AMOUNT OF THICK, BROWN SPUTUM. PATIENT RANGED FROM 5 L HF NC TO 15 L OXYMIZER THIS SHIFT. PATIENT CURRENTLY ON 10 L OXYMIZER. PATIENT HIGH 90S WHEN SLEEPING, HOWEVER WHEN HE IS AWAKE AND TALKING OR EXERTING SELF THEN HE DESATS VERY QUICKLY INTO THE 70S. PATIENT REMAINED IN SR TO ST WITH ST DEPRESSION. HR RANGED FROM 80S TO LOW 100S. BP REMAINED STABLE. PATIENT HAD ONE LARGE, BLACK, TARRY BOWEL MOVEMENT THIS AM. PATIENT HAD CONDOM CATH ON THIS AM, BUT THEN FELL OFF. PATIENT HAS BEEN USING URINAL SINCE WITH ASSISTANCE OF STAFF. PATIENT HAD 500 MLS ANDREA COLORED URINE OUT THIS SHIFT. PATIENT TOLERATED CARDIAC DIET WELL. PATIENT DOES HAVE POOR APPETITE. PATIENT MOSTLY REPOSITIONED SELF THROUGHOUT SHIFT. CENTRAL LINE REMOVED THIS SHIFT AND PG INSERTED TO REDUCE RISK OF INFECTION. PATIENT HAD HEAD CT THIS SHIFT. PATIENT'S , DAUGHTER, AND FRIEND IN THROUGHOUT DAY. PATIENT HAS NO COMPLAINTS AT THIS TIME. BED LOW, CALL LIGHT IN REACH. [facility] SHORTLY.
--- NOTE | 2019-08-19 20:30 | NUR ---
PT RESTING IN BED. DENIES PAIN AND N/V. HAS SOB WITH EXERTION. WHEN MOVING AROUND IN BED SPO2 DROPS TO 86% BUT DOES RECOVER QUICKLY. PT HAD ORIGINALLY SAID HE WOULD LIKE A CONDOM CATH PLACED AT NIGHT, BUT HE HAS CHANGED HIS MIND AND IT USING A URINAL JUST FINE. NO SIGN OF DISTRESS. USING CALL LIGHT APPROPRIATELY.
[2019-08-20 04:28] LABS: BASOPHILS ABSOLUTE AUTO 0.02 K/mm3 (0.00-0.23); BASOPHILS PERCENT AUTO 0 % (0-2); EOSINOPHILS PERCENT AUTO 3 % (0-6); Hematocrit 25.5 % (37.0-53.0); Hemoglobin 8.6 g/dL (13.5-17.5); IMMATURE GRAN ABSOLUTE AUTO 0.12 K/mm3 (0.00-0.10); IMMATURE GRAN PERCENT AUTO 1 % (0-1); LYMPHOCYTES ABSOLUTE AUTO 1.43 K/mm3 (0.84-5.20); LYMPHOCYTES PERCENT AUTO 11 % (21-46); MONOCYTES ABSOLUTE AUTO 1.02 K/mm3 (0.16-1.47); MONOCYTES PERCENT AUTO 8 % (4-13); Mean Corpuscular HGB 30.9 pg (26.0-34.0); Mean Corpuscular HGB Conc 33.7 g/dL (31.5-36.5); Mean Corpuscular Volume 92 fL (80-100); Mean Platelet Volume 9.8 fL (9.1-12.4); NEUTROPHILS ABSOLUTE AUTO 10.04 K/mm3 (1.96-9.15); NEUTROPHILS PERCENT AUTO 77 % (41-73); Platelet Count 199 K/mm3 (150-400); RDW Coefficient Variation 17.5 % (11.7-14.2); RDW Standard Deviation 59.1 fL (35.1-46.3); Red Blood Cell Count 2.78 M/mm3 (4.30-5.90); White Blood Cell Count 13.03 K/mm3 (4.00-11.30)
[2019-08-20 04:45] LABS: Anion Gap 7 mmol/L (6-16); Blood Urea Nitrogen 36 mg/dL (8-24); Bun/Creatinine Ratio 33.6 (12.0-20.0); CO2, Blood 27 mmol/L (21-32); Calcium, Blood 8.5 mg/dL (8.5-10.1); Chloride, Blood 99 mmol/L (98-108); Creatinine, Blood 1.07 mg/dL (0.60-1.20); Glomerular Filtration Rate >60 (60-); Glucose, Blood 111 mg/dL (70-99); Phosphorus, Blood 2.9 mg/dL (2.5-4.9); Potassium, Blood 4.2 mmol/L (3.5-5.5); Sodium, Blood 133 mmol/L (136-145)
--- NOTE | 2019-08-20 05:50 | NUR ---
SUMMARY PT RESTING IN BED. DENIES PAIN AND N/V. GETS SOB AND SPO2 DROPS TO 80'S WITH ANY EXERTION. SPUTUM IS WATERMAN AND THICK BUT PT ABLE TO CLEAR AIRWAY WITHOUT DIFFICULTY. HAS BEEN USING THE URINAL WITHOUT DIFFICULTY. NOW IS PLAYING ON HIS PHONE. USING HIS L HAND BETTER. NO REQUESTS. USING CALL LIGHT APPROPRIATELY.
--- NOTE | 2019-08-20 08:15 | NUR ---
INITIAL ASSESSMENT PATIENT READING QUIETLY IN BED UPON ENTERING ROOM. PATIENT CALM, PLEASANT, AND COOPERATIVE. PATIENT ALERT AND ORIENTED EXCEPT TO DATE. PATIENT [place]. PATIENT HAS SLIGHT L SIDED DEFICIT. PATIENT STATES FINE MOTOR SKILLS ARE IMPROVING BUT STATES THAT L HAND REMAINS NUMB. PATIENT WEAK BUT ABLE TO MOVE ALL EXTREMITIES. PATIENT AFEBRILE. PATIENT DENIES PAIN. PATIENT SATTING 90% AND GREATER ON 10 L OXYMIZER. PATIENT COUGHING UP SMALL AMOUNTS OF THICK, BROWN SPUTUM. LUNGS CLEAR IN UPER LOBES AND FINE CRACKLES NOTED IN LOWER LOBES. PATIENT BECOMES VERY SOB WITH EXERTION, AND CAN DESAT DOWN INTO 70S. PATIENT IN SR WITH ST DEPRESSION NOTED. HR 80S TO 90S. SBP 160S. ABDOMEN MILDLY DISTENDED, SOFT, WITH HYPERACTIVE BS NOTED. LAST BM YESTERDAY. PATIENT ON CARDIAC DIET. APPETITE SEEMS TO BE IMPROVING SLIGHTLY FROM YESTERDAY. PATIENT ATTEMPTS TO USE URINAL ON OWN; SPILLS MOST OF THE TIME. URINE DARK ANDREA IN COLOR. SKIN IS FRAGILE AND BRUISED. PG FLUSHED AND SALINE LOCKED. AT BEDSIDE. BED LOW, CALL LIGHT IN REACH. WILL CONTINUE TO MONITOR PATIENT FREQUENTLY THROUGHOUT SHIFT.
--- NOTE | 2019-08-20 12:00 | NUR ---
NEURO STATUS REMAINS UNCHANGED. PATIENT CONTINUES TO FEEL LIGHT-HEADED WHEN BECOMES SOB WITH EXERTION. PATIENT REMAINS ON 10 L TO 14 L OXYMIZER. HR IN THE 90S. BP STABLE. PATIENT REMAINS AFEBRILE. PATIENT HAS ONLY HAD 100 CC OF URINE OUTPUT SO FAR THIS SHIFT. NO OTHER ACUTE CHANGES TO NOTE ON AT THIS TIME. PATIENT HAS NO COMPLAINTS AT THIS TIME. WILL CONTINUE TO MONITOR.
--- NOTE | 2019-08-20 13:04 | NUR ---
DR. COLLIER CALLED TO SEE PATIENT. NURSE EXPRESSED CONCERN ABOUT PATIENT'S OXYGENATION STATUS. INFORMED THAT PATIENT HAS BEEN ON 10 TO 15 L OXYMIZER TODAY. PATIENT NORMALLY RA AT HOME. PATIENT ON 10 TO 12 L OXYMIZER LAST NIGHT AND 5L TO 10 L OXYMIZER YESTERDAY. INFORMED THAT PATIENT DESATS DOWN TO 70S EVEN WITH JUST EATING OR TALKING. PATIENT DANGLED TO TRY AND GO TO THE COMMODE THIS AM, HOWEVER PATIENT HAD TO BE LAID BACK DOWN INTO BED BY 2 STAFF BECAUSE BECAME VERY DIZZY. PATIENT CONTINUES TO BECOME DIZZY WITH ANY ACTIVITY IN BED. STATED TO PLACE PATIENT BACK ON BIPAP AND TO GIVE OT 40 MG IV LASIX. STATED SHE WOULD LOOK AT PATIENT'S CHEST XRAY FROM THIS AM AND LET NURSE KNOW IF PATIENT NEEDS TO GO BACK TO ICU STATUS.
--- NOTE | 2019-08-20 15:52 | NUR ---
DR. JAIN INFORMED OF PATIENT RETURNING TO ICU STATUS. UPDATED ON PATIENT. STATED SHE WOULD TAKE A LOOK AT HIS CHART.
--- NOTE | 2019-08-20 16:00 | NUR ---
NEURO STATUS REMAINS UNCHANGED. PATIENT ON BIPAP 05/28, 45% FIO2 TO KEEP SATS 90% AND GREATER. PATIENT RECEIVED 40 MG IV LASIX PER DR. COLLIER. HR IN THE 90S. BP STABLE. CONDOM CATH PLACED PER PATIENT REQUEST CONTINUES TO SPILL URINAL. PATIENT BACK TO ICU STATUS. DR. JAIN INFORMED. NO OTHER ACUTE CHANGES TO NOTE ON AT THIS TIME. PATIENT HAS NO COMPLAINTS OF PAIN. WILL CONTINUE TO MONITOR.
--- NOTE | 2019-08-20 19:20 | NUR ---
SHIFT SUMMARY PATIENT REMAINED ALERT AND ORIENTED. PATIENT REMAINED AFEBRILE. PATIENT HAD NO COMPLAINTS OF PAIN. PATIENT REMAINED ON BEDREST HE KEPT BECOMING VERY SOB WITH EXERTION AND DESATTING INTO THE 70S. PATIENT'S STRENGTH BETTER IN L SIDE. PATIENT STATES THAT L HAND REMAINS NUMB. PATIENT ON 10 TO 15 L OXYMIZER DURING THE MORNING AND EARLY AFTERNOON. PATIENT THEN PLACED ON BIPAP 12/6 AND 35% TO KEEP SATS 90% AND GREATER. PATIENT CURRENTLY ON BIPAP 12/6, 35% FIO2. PATIENT CONTINUED COUGHING UP SMALL AMOUNT OF THICK, BROWN PHLEGM. SPUTUM CULTURE SENT. PATIENT REMAINED SR TO ST WITH ST DEPRESSION NOTED. HR 80S TO LOW 100S. BPS STABLE. PATIENT DID NOT HAVE BM THIS SHIFT. PATIENT CONTINUES TO HAVE SMALL APPETITE. PATIENT VOIDED VERY LITTLE ANDREA COLORED URINE UNTIL OT 40 MG IV LASIX GIVEN. TOTAL OUTPUT OF 1275 CC. 1200 CC INTAKE FOR FLUID BALANCE OF -75. CONDOM CATH PLACED ON PATIENT LATER IN SHIFT CONTINUED TO SPILL URINAL. NO CHANGE IN SKIN. PATIENT HELPS WITH REPOSITIONING. IV S.L. EKG PERFORMED. COMPLETE BED BATH GIVEN. CT OF CHEST PERFORMED. AND FRIEND IN MOST OF THE DAY. PATIENT HAS NO COMPLAINTS AT THIS TIME. BED LOW, CALL LIGHT IN REACH. REPORT HAS BEEN GIVEN TO ASSUMING FIRST GRADE TEACHER NURSE.
--- NOTE | 2019-08-20 20:02 | NUR ---
PT RESTING IN BED ON BIPAP / FIO2 35%. IF PT TRIES TO TALK WITH BIPAP ON HE WILL DESAT TO 80'S. WHILE TAKING PILLS HE WAS ON 15L OXYMIZER AND SPO2 WAS 90-99% DEPENDING ON HOW MUCH TALKING HE WAS DOING. PT IS UNSURE OF DAY BUT WAS ABLE TO STATE IT IS JULY 2019 AND THAT NIESHA IS PRESIDENT. CONDOM CATH WAS REPLACED DUE TO IT COMING OFF. PT REQUESTS CONDOM CATH RIGHT NOW DUE TO WEAKNESS AND SPILLING URINAL FREQUENTLY. PT STATES NUMBNESS TO L HAND IS IMPROVING. PT IS ABLE TO USE BOTH HANDS TO TAKE PILLS BY HOLDING WATER WITH ONE HAND AND PICKING PILLS UP WITH OTHER. CALL LIGHT IN REACH AND CALLS APPROPRIATELY.
[2019-08-21 05:24] LABS: Hematocrit 25.9 % (37.0-53.0); Hemoglobin 8.7 g/dL (13.5-17.5); Mean Corpuscular HGB Conc 33.6 g/dL (31.5-36.5); Mean Corpuscular Volume 92 fL (80-100); Mean Platelet Volume 9.7 fL (9.1-12.4); NRBC ABSOLUTE 0.02 K/mm3 (0.00-0.02); NRBC Auto 0.1 /100 WBC (0.0-0.2); Platelet Count 220 K/mm3 (150-400); RDW Coefficient Variation 17.2 % (11.7-14.2); RDW Standard Deviation 58.4 fL (35.1-46.3); Red Blood Cell Count 2.81 M/mm3 (4.30-5.90); White Blood Cell Count 17.21 K/mm3 (4.00-11.30)
[2019-08-21 05:48] LABS: Albumin, Blood 2.2 g/dL (3.4-5.0); Anion Gap 7 mmol/L (6-16); Blood Urea Nitrogen 34 mg/dL (8-24); Bun/Creatinine Ratio 28.1 (12.0-20.0); CO2, Blood 29 mmol/L (21-32); Calcium, Blood 8.3 mg/dL (8.5-10.1); Chloride, Blood 98 mmol/L (98-108); Creatinine, Blood 1.21 mg/dL (0.60-1.20); Glomerular Filtration Rate >60 (60-); Glucose, Blood 120 mg/dL (70-99); Phosphorus, Blood 2.9 mg/dL (2.5-4.9); Potassium, Blood 4.5 mmol/L (3.5-5.5); Sodium, Blood 134 mmol/L (136-145)
--- NOTE | 2019-08-21 06:07 | NUR ---
SUMMARY PT RESTING IN BED. ON BREAK FROM BIPAP ON 14L OXYMIZER. PT WORE BIPAP ALL NIGHT WITH ONLY SHORT BREAKS FOR PILLS. CALLED DR. JAIN ABOUT CRITICAL HIGH TROPONIN THIS AM. NO SIGN OF DISTRESS.
--- NOTE | 2019-08-21 08:00 | NUR ---
INITIAL ASSESSMENT PATIENT [place]. PATIENT ALERT AND ORIENTED EXCEPT TO DATE. PATIENT AFEBRILE. PATIENT DENIES PAIN. PATIENT COMPLAINS THAT HE STILL HAS NUMBNESS IN HIS L HAND BUT THAT L SIDED WEAKNESS CONTINUES TO IMPROVE. PATIENT SATTING 90% AND GREATER ON 14 L OXYMIZER. PATIENT CONTINUES TO COUGH UP SMALL AMOUNT OF THICK, BROWN SPUTUM. PATIENT CONTINUES TO BECOME SOB WITH EXERTION. PATIENT IN SR WITH ST DEPRESSION NOTED. HR 80S TO 90S. BP STABLE. ABDOMEN MILDLY DISTENDED, SOFT, WITH HYPERACTIVE BS NOTED. NO BM THIS SHIFT. CONDOM CATH IN PLACE, DRAINING DARK TEA COLORED URINE. SKIN FRAGILE WITH SCATTERED BRUISING NOTED. IV FLUSHED AND SALINE LOCKED. BED LOW, CALL LIGHT IN REACH. FAMILY AT BEDSIDE. WILL CONTINUE TO MONITOR PATIENT FREQUENTLY THROUGHOUT SHIFT.
--- NOTE | 2019-08-21 10:15 | NUR ---
PATIENT COMPLAINING OF INTERMITTENT "POKING" CHEST PAIN DURING ECHO. DR. JAIN INFORMED. EKG PERFORMED. [address] JAIN. NO ORDERS RECEIVED AT THIS TIME.
--- NOTE | 2019-08-21 11:10 | NUR ---
DR. COLLIER HERE TO SEE PATIENT. INFORMED THAT PATIENT WORE BIPAP MOST OF THE NIGHT AND HAS BEEN SATTING 90% AND GREATER THIS AM ON 14 L OXYMIZER. INFORMED THAT WBCS INCREASING. INFORMED THAT URINE IS DARK TEA COLORED AND THAT FAMILY IS CONCERNED ABOUT IT. NO ORDERS RECEIVED AT THIS TIME.
--- NOTE | 2019-08-21 12:00 | NUR ---
NEURO STATUS REMAINS UNCHANGED. PATIENT AFEBRILE. NO COMPLAINTS OF PAIN. PATIENT SATTING 90% AND GREATER ON EITHER 14 L OXYMIZER OR BIPAP 05/28, 40 TO 45% FIO2. PATIENT NOW COUGHING UP SMALL AMOUNTS OF PINK/ YELLOW COLORED PHLEGM. PATIENT IN SR TO ST WITH ST DEPRESSION. HR 80S TO LOW 100S. BP STABLE. URINE TEA/ GREEN IN COLOR. NO OTHER ACUTE CHANGES TO NOTE ON AT THIS TIME. WILL CONTINUE TO MONITOR.
--- NOTE | 2019-08-21 13:00 | NUR ---
DR. JAIN IN TO SEE PATIENT AND SPEAK WITH PATIENT AND FAMILY. DR. JAIN UPDATED ON PATIENT STATUS. INFORMED THAT PATIENT ON BIPAP MOST OF THE NIGHT. INFORMED THAT PATIENT HAS BEEN SATTING 90% AND GREATER ON 14 L OYXMIZER IF NOT ON BIPAP. INFORMED OF INCREASE IN WBC. INFORMED THAT URINE VERY DARK TEA IN COLOR. NO ORDERS RECEIVED AT THIS TIME.
--- NOTE | 2019-08-21 15:56 | NUR ---
DR. DOAN CALLED AND UPDATED ON PATIENT STATUS. INFORMED THAT PATIENT RECEIVING SCHEDULED LASIX AT 0900 IN ADDITION TO ALL OF HIS CARDIAC MEDS IN THE AM. INFORMED THAT BP CHANGES FROM STABLE TO SOFT LATER AFTER MEDICATION HAVE BEEN ADMINISTERED. INFORMED THAT MAP NOW HIGH 50S TO LOW 60S. INFORMED THAT PARTIAL ECHO COMPLETED THIS AM. ALSO INFORMED THAT PATIENT HAD 3/10 CHEST PAIN THIS AM DURING ECHO. INFORMED THAT EKG COMPLETED IMMEDIATELY AFTER BUT PATIENT STATED THAT PAIN HAD RESOLVED. STATED HE WOULD COME SEE PATIENT AND LOOK OVER MED LIST. NO ORDERS RECEIVED AT THIS TIME.
--- NOTE | 2019-08-21 16:03 | NUR ---
PATIENT NAPPING QUIETLY IN BED. PATIENT AFEBRILE. NO COMPLAINTS OF PAIN. PATIENT REMAINS SATTING 90% AND GREATER ON BIPAP 12/6, 40% FIO2. BP SOFT. DR. JAIN AND DR. DOAN AWARE. CARDIAC MEDS CHANGED BY DR. DOAN. NO OTHER CHANGES TO NOTE ON AT THIS TIME. WILL CONTINUE TO MONITOR.
--- NOTE | 2019-08-21 16:20 | NUR ---
DR. DOAN IN ROOM TO SEE PATIENT.
--- NOTE | 2019-08-21 18:20 | NUR ---
SHIFT SUMMARY PATIENT REMAINED MOSTLY ALERT AND ORIENTED, HUSLIA. PATIENT REMAINED AFEBRILE. PATIENT COMPLAINED OF CP OT THIS AM WHEN ON LEFT SIDE DURING ECHO. PATIENT HAD EKG WELL. DR. JAIN AND DR. DOAN INFORMED. PAIN LASTED ONLY A FEW MINUTES. PATIENT REMAINED SATTING 90% AND GREATER ON EITHER OXYMIZER AT 14 L OR ON BIPAP 12/6, 40 TO 45% FIO2. PATIENT REMAINS SOB WITH EXERTION BUT IS MUCH LESS SOB WITH TALKING AND EATING THAN WAS YESTERDAY. PATIENT PHLEGM CHANGED FROM BROWN IN COLOR TO PINK AND YELLOW. LUNGS REMAINED CLEAR IN UPPER LOBES AND DIMINISHED IN LOWER LOBES. PATIENT REMAINED IN SR TO ST WITH ST DEPRESSION. HR 80S TO LOW 100S. BP MOSTLY STABLE. PATIENT DID HAVE SOFT BLOOD PRESSURES AFTER RECEIVING AM DIURETIC AND CARDIAC MEDS. DR. JAIN AND DR. DOAN INFORMED. DR. DOAN DECREASED PATIENT'S IMDUR DOSE. NO BM THIS SHIFT. PATIENT CONTINUES TO HAVE POOR APPETITE. CONDOM CATH DRAINED 1150 MLS OF GREEN/ TEA COLORED URINE OUT. PATIENT ASSISTED WITH REPOSITIONING THROUGHOUT SHIFT. PATIENT HAS NO COMPLAINTS AT THIS TIME. FAMILY AT BEDSIDE. WILL BE GIVING REPORT TO ONCOMING FINANCIAL ACCOUNTING ANALYST NURSE SHORTLY.
--- NOTE | 2019-08-21 20:00 | NUR ---
ASSUMPTION OF CARE: PT A&O. IN SR, SBP 100S,HR IN THE 90S. PT IS HAVNG SOME OCC PVCS. LUNG SOUNDS CLEAR ON 15L HF. SPO2 >90%. BIPAP IS ON STANDBY. CONDOM CATH IN PLACE PATENT AND DRAINING. PG IN [place]. PATENT AND SL. WILL CONTINUE TO MONITOR
--- NOTE | 2019-08-21 21:30 | NUR ---
PT STATES HE IS READY FOR BED AND WOULD LIKE TO GO ON BIPAP FOR THE NIGHT. BIPAP SETTINGS ARE 12/6/40%. PT TOLERATES BIPAP WELL. RT NOTIFIED
[2019-08-22 04:39] LABS: BASOPHILS ABSOLUTE AUTO 0.04 K/mm3 (0.00-0.23); BASOPHILS PERCENT AUTO 0 % (0-2); EOSINOPHILS ABSOLUTE AUTO 0.34 K/mm3 (0.00-0.68); EOSINOPHILS PERCENT AUTO 2 % (0-6); Hematocrit 26.1 % (37.0-53.0); Hemoglobin 8.6 g/dL (13.5-17.5); IMMATURE GRAN ABSOLUTE AUTO 0.37 K/mm3 (0.00-0.10); IMMATURE GRAN PERCENT AUTO 2 % (0-1); LYMPHOCYTES ABSOLUTE AUTO 1.67 K/mm3 (0.84-5.20); LYMPHOCYTES PERCENT AUTO 10 % (21-46); MONOCYTES PERCENT AUTO 5 % (4-13); Mean Corpuscular HGB 30.6 pg (26.0-34.0); Mean Corpuscular Volume 93 fL (80-100); Mean Platelet Volume 10.2 fL (9.1-12.4); NEUTROPHILS ABSOLUTE AUTO 13.58 K/mm3 (1.96-9.15); NEUTROPHILS PERCENT AUTO 81 % (41-73); Platelet Count 209 K/mm3 (150-400); RDW Coefficient Variation 17.2 % (11.7-14.2); RDW Standard Deviation 58.8 fL (35.1-46.3); Red Blood Cell Count 2.81 M/mm3 (4.30-5.90)
--- NOTE | 2019-08-22 04:50 | NUR ---
PT TAKING BREAK FROM BIPAP AND WENT BACK ON AIRVO AT 15L. TOLERATING WELL. SPO2 >90% WITH SHORT DESATS WITH COUGHING.
[2019-08-22 05:02] LABS: Albumin, Blood 2.1 g/dL (3.4-5.0); Anion Gap 6 mmol/L (6-16); Blood Urea Nitrogen 43 mg/dL (8-24); Bun/Creatinine Ratio 30.5 (12.0-20.0); CO2, Blood 29 mmol/L (21-32); Calcium, Blood 8.2 mg/dL (8.5-10.1); Chloride, Blood 98 mmol/L (98-108); Creatinine, Blood 1.41 mg/dL (0.60-1.20); Glomerular Filtration Rate 50 (60-); Glucose, Blood 137 mg/dL (70-99); Phosphorus, Blood 3.4 mg/dL (2.5-4.9); Potassium, Blood 4.4 mmol/L (3.5-5.5); Sodium, Blood 133 mmol/L (136-145)
--- NOTE | 2019-08-22 06:22 | NUR ---
SUMMARY: NO ACUTE CHANGES T/O SHIFT. PT SLEPT MAJORITY OF SHIFT WITH BIPAP ON. TOLERATED WELL. SETTINGS REMAIN 12//40%. PG IN [place] IS PATENT AND SL. CONDOM CATH REMAINS IN PLACE. URINE IS A VERY DARK [place] COLOR. HE HAD ONLY A SMALL AMT OF OUTPUT ALL SHIFT. DR JAIN AWARE AND ORDERS ARE TO COLLECT A UA AND SEND. WILL PASS INFO ON TO ONCOMING RN.
--- NOTE | 2019-08-22 07:38 | NUR ---
ASSUMED CARE: PT RESTING IN BED, 15L OXYMIZER IN PLACE. TRIGEMENY OF PVC'S NOTED ON NATURAL DEVELOPER. WILL DISCUSS WITH MD. PT DENIES NEEDS OR CONCERNS AT THIS TIME.
--- NOTE | 2019-08-22 10:30 | NUR ---
DR JAIN AND DR COLLIER AWARE OF PT'S TRIGEMINY AND NORMAL POTASSIUM AND MAG. ALSO AWARE THAT DR DOAN CAME TO SEE PT. DR DOAN SPOKE WITH DR JAIN AND INFORMED HER OF PLAN WHICH SHE INFORMED FAMILY
[2019-08-22 12:05] LABS: Source, Urine Catheter
[2019-08-22 12:09] LABS: Bilirubin, Urine Neg (Neg); Blood, Urine 2+ (Neg); Glucose Qualitative, Urine Neg (Neg); Ketones, Urine Neg (Neg); Leukocyte Esterase, Urine Neg (Neg); Nitrite, Urine Neg (Neg); Protein, Urine Neg (Neg); Urobilinogen, Urine 2+ (Normal)
[2019-08-22 12:55] LABS: Appearance, Urine Clear (Clear); Color, Urine Yellow (P-Yellow)
[2019-08-22 12:56] LABS: Bacteria Rare /hpf; Squamous Epithelial Cells Not Seen /hpf (Few); White Blood Cells, Urine 0-2 /hpf (0-5)
[2019-08-22 13:35] LABS: Adenovirus Not Detected (NOT DETECT); Bordetella pertussis Not Detected (NOT DETECT); Chlamydophila pneumoniae Not Detected (NOT DETECT); Coronavirus 229E Not Detected (NOT DETECT); Coronavirus HKU1 Not Detected (NOT DETECT); Coronavirus NL63 Not Detected (NOT DETECT); Coronavirus OC43 Not Detected (NOT DETECT); Human Metapneumovirus Not Detected (NOT DETECT); Human Rhinovirus/Enterovirus Not Detected (NOT DETECT); Influenza A Not Detected (NOT DETECT); Influenza A/2009-H1 Not Detected (NOT DETECT); Influenza A/H1 Not Detected (NOT DETECT); Influenza A/H3 Not Detected (NOT DETECT); Influenza B Not Detected (NOT DETECT); Mycoplasma pneumoniae Not Detected (NOT DETECT); Parainfluenza Virus 1 Not Detected (NOT DETECT); Parainfluenza Virus 2 Not Detected (NOT DETECT); Parainfluenza Virus 3 Not Detected (NOT DETECT); Parainfluenza Virus 4 Not Detected (NOT DETECT); Respiratory Syncytial Virus Not Detected (NOT DETECT)
--- NOTE | 2019-08-22 14:50 | NUR ---
PT TAKEN TO CT WITH NURSE ACCOMPANYING. TRANSPORTED ON 10L.
--- NOTE | 2019-08-22 15:53 | NUR ---
PT RETURNED FROM CT ON 10L. DESATTING INTO 80S, INCREASED TO 12L. NOTED TO BE HYPOTENSIVE WITH REPEATED ATTEMPTS AND CHANGE OF SITE AND CUFF. DISCUSSED WITH DR JAIN. PT ALSO STATED HE FELT HE HAD A SWOLLEN TONGUE. DR JAIN EXAMINED. ORDERS FOR SOLUCORTEF TO IMPROVE RESPIRATORY AND HOPEFULLY BPS. PT CURRENTLY 95% ON 14L DUE TO DESAT WITH BED ACTIVITY.
--- NOTE | 2019-08-22 18:40 | NUR ---
SHIFT SUMMARY: T/O DAY PT'S O2 HAS BEEN TITRATED FOR COMFORT DUE TO DESATURATING WITH ANY KIND OF ACTIVITY. O2 VIA OXYMIZER BETWEEN 9 AND 14L. PT ATTEMPTED TO EAT DINNER, BECAME SOB AND ASKED TO BE IN BIPAP. SATURATING MID 90S WITH SETTINGS AT 12/6 AND 50% FIO2. ATTEMPTED TO WORK WITH PHYSICAL THERAPY WITH LITTLE TOLERANCE OF ACTIVITY. FAMILY AT BEDSIDE T/O DAY. CONVERTS BETWEEN TRIGEMINY AND NSR, DISCUSSED WITH DR JAIN WHO FEELS MAY BE DUE TO ISCHEMIC CARDIOMYOPATHY.
--- NOTE | 2019-08-22 20:00 | NUR ---
INITIAL ASSESSMENT PATIENT [place], ALERT AND ORIENTED X 3. AFEBRILE. L SIDE SLIGHTLY WEAKER THAN R SIDE. PATIENT STATES L HAND IS NUMB AND HAS BEEN SINCE CAME INTO THE HOSPITAL. PATIENT WEAK BUT ABLE TO MOVE ALL EXTREMITIES AND ASSIST WITH REPOSITIONING. PATIENT DENIES PAIN. PATIENT SATTING 90% AND GREATER ON EITHER 14 L OXYMIZER OR BIPAP 12/6, 50% FIO2. LUNGS CLEAR IN UPPER LOBES. CRACKLES NOTED IN LOWER LOBES. PATIENT COUGHING UP SMALL AMOUNT OF THICK, BROWN SPUTUM. PATIENT SOB EASILY WITH EXERTION. PATIENT IN QUADRIGEMINY, ST DEPRESSION NOTED. HR 80S TO 90S. BP STABLE. ABDOMEN MILDLY DISTENDED, SOFT, WITH NORMOACTIVE BS NOTED. CONDOM CATH IN PLACE PER PATIENT REQUEST; DRAINING DARK TEA/ GREEN COLORED URINE. SKIN FRAGILE, WITH SCATTERED BRUISES NOTED. IV FLUSHED AND SALINE LOCKED. BED LOW, CALL LIGHT IN REACH. WILL CONTINUE TO MONITOR PATIENT FREQUENTLY THROUGHOUT SHIFT.
--- NOTE | 2019-08-23 | NUR ---
PATIENT LYING AWAKE WITH NO COMPLAINTS UPON ENTERING ROOM. PATIENT AFEBRILE. PATIENT SATTING 90% AND GREATER ON BIPAP 12/6, 40% FIO2. NO OTHER ACUTE CHANGES TO NOTE ON AT THIS TIME. PATIENT GIVEN SIP OF WATER AND PLACED BACK ON MASK. WILL CONTINUE TO MONITOR.
[2019-08-23 04:13] LABS: BASOPHILS ABSOLUTE AUTO 0.04 K/mm3 (0.00-0.23); BASOPHILS PERCENT AUTO 0 % (0-2); EOSINOPHILS ABSOLUTE AUTO 0.15 K/mm3 (0.00-0.68); EOSINOPHILS PERCENT AUTO 1 % (0-6); Hematocrit 24.9 % (37.0-53.0); Hemoglobin 8.2 g/dL (13.5-17.5); IMMATURE GRAN ABSOLUTE AUTO 0.22 K/mm3 (0.00-0.10); IMMATURE GRAN PERCENT AUTO 1 % (0-1); LYMPHOCYTES PERCENT AUTO 14 % (21-46); MONOCYTES ABSOLUTE AUTO 0.85 K/mm3 (0.16-1.47); MONOCYTES PERCENT AUTO 5 % (4-13); Mean Corpuscular HGB 30.6 pg (26.0-34.0); Mean Corpuscular HGB Conc 32.9 g/dL (31.5-36.5); Mean Corpuscular Volume 93 fL (80-100); Mean Platelet Volume 9.9 fL (9.1-12.4); NEUTROPHILS ABSOLUTE AUTO 12.82 K/mm3 (1.96-9.15); NEUTROPHILS PERCENT AUTO 79 % (41-73); Platelet Count 236 K/mm3 (150-400); RDW Coefficient Variation 17.2 % (11.7-14.2); RDW Standard Deviation 58.2 fL (35.1-46.3); Red Blood Cell Count 2.68 M/mm3 (4.30-5.90); White Blood Cell Count 16.28 K/mm3 (4.00-11.30)
[2019-08-23 04:32] LABS: Calcium, Blood 8.3 mg/dL (8.5-10.1); Creatinine, Blood 1.46 mg/dL (0.60-1.20); Magnesium, Blood 2.3 mg/dL (1.6-2.4); Phosphorus, Blood 4.1 mg/dL (2.5-4.9); Potassium, Blood 4.3 mmol/L (3.5-5.5)
--- NOTE | 2019-08-23 05:09 | NUR ---
PATIENT RESTING QUIETLY IN BED UPON ENTERING ROOM. AFEBRILE. NO SIGNS OF PAIN. VSS. NO ACUTE CHANGES TO NOTE ON. WILL CONTINUE TO MONITOR.
--- NOTE | 2019-08-23 06:12 | NUR ---
SHIFT SUMMARY PATIENT REMAINED ALERT AND ORIENTED X 3, AFEBRILE. PATIENT AWAKE MOST OF THE NIGHT. PATIENT HAD NO COMPLAINTS OF PAIN. PATIENT REMAINED SATTING 90% AND GREATER ON EITHER 14 L OXYMIZER OR BIPAP 05/28, 40 TO 50% FIO2. PATIENT REMAINED IN SR WITH PVCS AND ST DEPRESSION. HR 80S TO 90S. BP STABLE. NO BM THIS SHIFT. CONDOM CATH DRAINED 600 MLS DARK TEA/ GREEN COLORED. NO CHANGE IN SKIN. BED LOW, CALL LIGHT IN REACH. NO COMPLAINTS AT THIS TIME. REPORT WILL BE GIVEN TO ONCOMING DAY SHIFT NURSE SHORTLY.
--- NOTE | 2019-08-23 07:30 | NUR ---
ASSUMED CARE: PT RESTING QUIETLY. O2 MID 90S ON 14L VIA OXYMIZER. APPEARS COMFORTABLE AT THIS TIME.
--- NOTE | 2019-08-23 11:05 | NUR ---
PT UP TO BEDSIDE COMMODE. 1 ASSIST BUT VERY SOB ON EXERTION, DESATURATED INTO 70S ALMOST IMMEDIATELY. PLACE PT ON BIPAP. LARGE BLACK/MAROON STOOL. DISCUSSED WITH DR JAIN.
--- NOTE | 2019-08-23 13:01 | NUR ---
PT WAS TAKEN OFF OF MASK AND BACK ON NC FOR BREAK. NC INCREASED TO 12 L WITH DIFFICULTY MAINTAINING SAT ABOVE 90. INCREASED TO 14L STILL WITH DIFFICULTY. MASK REPLACED
[2019-08-23 13:45] LABS: Hemoglobin 7.9 g/dL (13.5-17.5)
--- NOTE | 2019-08-23 14:32 | NUR ---
H AND H RESULT CAME BACK WITH WORSENING RESULT. DISCUSSED WITH DR JAIN WHO STATED TO CALL DR GALLAGHER. OFFICE STATES DR CLEMONS IS COVERING. OFFICE STATES DR CLEMONS TO CALL BACK. DR JAIN AWARE THAT AWAITING CALL.
--- NOTE | 2019-08-23 15:17 | NUR ---
DR CLEMONS RETURNED CALL. UPDATED ON PT'S STATUS AND CURRENT ORDERS PER DR JAIN. DR DELGADO WILL REVIEW CHART AND COME SEE PT THIS AFTERNOON. DR JAIN AND FAMILY UPDATED.
--- NOTE | 2019-08-23 17:16 | NUR ---
PT'S BLOOD PRESSURES HAVE BEEN SOFTER THIS AFTERNOON. DISCUSSED WITH DR JAIN WHO INSTRUCTED TO HOLD LASIX DUE TO PT RECIEVING SEDATION FOR SCOPE THIS AFTERNOON. FAMILY AWARE AND AT BEDSIDE AT THIS TIME.
--- NOTE | 2019-08-23 17:47 | NUR ---
08/23/19 1746 YASH COLLINS History, Chart, Medications and Allergies reviewed before start of procedure. 3-LEAD EKG REVIEWED WITH PHYSICIAN PRIOR TO START OF PROCEDURE. O2 VIA N/C INTACT THROUGHOUT SEDATION/PROCEDURE. MONITOR INTACT WITH CONTINUOUS PULSE OXIMETRY AND INTERMITTENT BP. MAC WITH DR. SHERWOOD.
--- NOTE | 2019-08-23 18:33 | NUR ---
SHIFT SUMMARY: EGD COMPLETED BY DR CLEMONS. DR DISCUSSED RESULTS WITH DR JAIN AND PT'S FAMILY. INSTRUCTS FOR PROTONIX DRIP TO CONTINUE AND CLEAR LIQUID DIET FOR TONIGHT. PT'S BPS HAVE IMPROVED AND O2 MID 90S ON 11L HIFLOW NC. FAMILY AT BEDSIDE AT THIS TIME. NO FURTHER NEEDS
[2019-08-23 20:41] LABS: Hematocrit 24.2 % (37.0-53.0)
--- NOTE | 2019-08-23 22:24 | NUR ---
ASSUMPTION OF CARE: ASSUMED CARE OF PATIENT AFTER REPORT FROM MARY ELLEN HOLLINGSWORTH, PATIENT ALERT AND ORIENTED AT THIS TIME, PROTONIX DRIP RUNNING AT 10ML/HR PER MD ORDERS. NO CHANGES OR COMPLAINTS AT THIS TIME.
[2019-08-24 03:33] LABS: BASOPHILS ABSOLUTE AUTO 0.05 K/mm3 (0.00-0.23); BASOPHILS PERCENT AUTO 0 % (0-2); EOSINOPHILS ABSOLUTE AUTO 0.16 K/mm3 (0.00-0.68); EOSINOPHILS PERCENT AUTO 1 % (0-6); Hematocrit 22.6 % (37.0-53.0); Hemoglobin 7.5 g/dL (13.5-17.5); IMMATURE GRAN ABSOLUTE AUTO 0.33 K/mm3 (0.00-0.10); IMMATURE GRAN PERCENT AUTO 2 % (0-1); LYMPHOCYTES ABSOLUTE AUTO 1.38 K/mm3 (0.84-5.20); LYMPHOCYTES PERCENT AUTO 7 % (21-46); MONOCYTES ABSOLUTE AUTO 1.05 K/mm3 (0.16-1.47); MONOCYTES PERCENT AUTO 6 % (4-13); Mean Corpuscular HGB 30.9 pg (26.0-34.0); Mean Corpuscular HGB Conc 33.2 g/dL (31.5-36.5); Mean Corpuscular Volume 93 fL (80-100); Mean Platelet Volume 10.2 fL (9.1-12.4); NEUTROPHILS ABSOLUTE AUTO 16.11 K/mm3 (1.96-9.15); NEUTROPHILS PERCENT AUTO 85 % (41-73); Platelet Count 266 K/mm3 (150-400); RDW Coefficient Variation 17.2 % (11.7-14.2); Red Blood Cell Count 2.43 M/mm3 (4.30-5.90); White Blood Cell Count 19.08 K/mm3 (4.00-11.30)
[2019-08-24 03:56] LABS: Bun/Creatinine Ratio 40.8 (12.0-20.0); Calcium, Blood 8.1 mg/dL (8.5-10.1); Creatinine, Blood 1.42 mg/dL (0.60-1.20); Magnesium, Blood 2.2 mg/dL (1.6-2.4); Phosphorus, Blood 3.6 mg/dL (2.5-4.9); Potassium, Blood 4.2 mmol/L (3.5-5.5)
--- NOTE | 2019-08-24 05:34 | NUR ---
SHIFT SUMMARY: PATIENT WORE BIPAP FOR APPROX 5 HOURS THIS SHIFT, HIGH FLOW NC AT 8L WHILE NOT ON BIPAP WITH O2 >90%. PATIENT REMAINS ALERT AND ORIENTED WITH MAP RANGING FROM 50'S TO LOW 60'S, ALL OTHER VSS. PATIENT PROTONIX CONTINUOUS AT 10ML/HR, NO BM THIS SHIFT, URINE TEA COLORED.
--- NOTE | 2019-08-24 08:00 | NUR ---
ASSUMED CARE PT LYING IN BED ALERT AND ORIENTED TO SELF, SITUATION AND SURROUNDINGS. HE IS ON 8L HIGH FLOW NC. HE IS DYSPNEIC AND DESATS WITH EXERTION, BUT AT REST SAT'S ARE GREAT. HE DOES TAKE A WHILE TO RECOVER PER NOC NURSE, DURING TURNS, AND ANY ACTIVITY. HE HAS A BIPAP AT BEDSIDE PRN, HE HAS SCD'S ON BILATERAL CALVES. PT HAVING STABLE VITALS CURRENTLY, BP IS LABILE BUT WNL. BED LOW AND LOCKED. CALL LIGHT WITHIN REACH.
--- NOTE | 2019-08-24 16:33 | NUR ---
UPDATE PT HAS BEEN TITRATING DOWN ON HIGH FLOW NC, CURRENTLY 6L; BUT WHEN TURNED, OR WITH EXERTION ( WITH OT TREATMENT) HE DESATS OT 70-80's AND TAKES A BIT TO RECOVER, HE DOES WELL WITH INSTRUCTION (STOP TALKING, FOCUS ON BREATHING, IN THROUGH THE MOUTH OUT OF THE MOUTH) AND HE RECOVERS BACK TO 90'S. PT STATES AT REST HE FEELS GOOD AND ISN'T EXEPERIENCING ANY PAIN. NO BM TODAY SO FAR. KACI AND DR COELLO HAVE SEEN PT. HE IS NOW ON A LASIX GTTP.
--- NOTE | 2019-08-24 18:15 | NUR ---
SHIFT SUMMARY PT IS CURRENTLY ON 9-10L HIGH FLOW NC. HE HAS BEEN LOW 5L, AND HIGH 14-15L AFTER HE WORKED WITH OT EARLIER IN THE DAY. HE RECOVERS EVENTUALLY, BUT IT TAKES HIM A WHILE. HE HAS BEEN ON 6L FOR THE MAJORITY OF THE DAY, BUT REQUESTED TO BE TURNED UP, HE IS EXHAUSTED. HE IS ORIENTED TO SELF, SITUATION, SURROUNDINGS, AND TIME. HE IS IN SINUS RHYTHM WITH ECTOPY, BUT DENIES ANY CHEST DISCOMFORT, OR GENERALIZED PAIN. HE IS CURRENTLY ON A LASIX GTTP AT 10MG/HR, PROTONIX AT 10ML/HR, AND NS TKO. HE IS HAVING ADEQUATE URINE OUTPUT. HIS DIASTOLIC BP IS LOW, WHICH BRINGS DOWN HIS MAP, BUT HIS SYSTOLIC BP HAS BEEN ADEQUATE ALL DAY. NO BM TODAY. KACI WANTS HIM TO REMAIN ON PROTONIX GTTP. BED LOW AND LOCKED. CALL LIGHT WITHIN REACH. HIS APPETITE HAS NOT BEEN GREAT, BUT THAT COULD BE DUE TO AN AVERSION TO THE TYPE OF FOOD WE HAVE.
--- NOTE | 2019-08-24 19:30 | NUR ---
PATIENT RESTING QUIETLY IN BED VISITING WITH FAMILY. MAINTAINING BIOX 90% ON 7L/NC, CONTINUES TO GET SOB WITH SLIGHT ACTIVITY. AFTER FAMILY HOME FOR THE NIGHT BIPAP PLACED SET AT 12/6 FIO2 50% FOR SLEEP. LASIX DRIP INFUSING FOR URINE OUTPUT OF 150 CC/HR. CONDOM CATH IN PLACE, DRAINING WELL.
--- NOTE | 2019-08-25 01:41 | NUR ---
DOCTOR OUMOU NOTIFIED OF DROP IN BP, I&O, AND FREQUENT LIQUID BLACK STOOLS. LASIX DRIP ON HOLD AND STAT H&H ORDERED
[2019-08-25 01:59] LABS: Hematocrit 20.8 % (37.0-53.0); Hemoglobin 6.6 g/dL (13.5-17.5)
[2019-08-25 05:13] LABS: BASOPHILS ABSOLUTE AUTO 0.09 K/mm3 (0.00-0.23); BASOPHILS PERCENT AUTO 0 % (0-2); EOSINOPHILS ABSOLUTE AUTO 0.04 K/mm3 (0.00-0.68); EOSINOPHILS PERCENT AUTO 0 % (0-6); Hematocrit 22.1 % (37.0-53.0); Hemoglobin 7.1 g/dL (13.5-17.5); IMMATURE GRAN ABSOLUTE AUTO 0.82 K/mm3 (0.00-0.10); IMMATURE GRAN PERCENT AUTO 3 % (0-1); LYMPHOCYTES ABSOLUTE AUTO 1.68 K/mm3 (0.84-5.20); LYMPHOCYTES PERCENT AUTO 6 % (21-46); MONOCYTES ABSOLUTE AUTO 1.24 K/mm3 (0.16-1.47); MONOCYTES PERCENT AUTO 4 % (4-13); Mean Corpuscular HGB 30.7 pg (26.0-34.0); Mean Corpuscular HGB Conc 32.1 g/dL (31.5-36.5); Mean Platelet Volume 10.7 fL (9.1-12.4); NEUTROPHILS PERCENT AUTO 87 % (41-73); Platelet Count 300 K/mm3 (150-400); RDW Coefficient Variation 17.3 % (11.7-14.2); RDW Standard Deviation 59.7 fL (35.1-46.3); Red Blood Cell Count 2.31 M/mm3 (4.30-5.90); White Blood Cell Count 30.67 K/mm3 (4.00-11.30)
[2019-08-25 05:15] LABS: Mean Corpuscular Volume 96 fL (80-100)
[2019-08-25 05:35] LABS: Albumin, Blood 2.2 g/dL (3.4-5.0); Anion Gap 10 mmol/L (6-16); Blood Urea Nitrogen 71 mg/dL (8-24); Bun/Creatinine Ratio 49.3 (12.0-20.0); CO2, Blood 26 mmol/L (21-32); Calcium, Blood 8.1 mg/dL (8.5-10.1); Chloride, Blood 102 mmol/L (98-108); Creatinine, Blood 1.44 mg/dL (0.60-1.20); Glomerular Filtration Rate 49 (60-); Glucose, Blood 129 mg/dL (70-99); Phosphorus, Blood 4.7 mg/dL (2.5-4.9); Potassium, Blood 4.2 mmol/L (3.5-5.5); Sodium, Blood 138 mmol/L (136-145)
--- NOTE | 2019-08-25 06:00 | NUR ---
SUMMARY PATIENT AWAKE MOST OF THE NIGHT WITH SEVERAL BLACK/BROWN STOOLS, WITH HYPOTENSION AND FEELINGS OF SOB. ONE UNIT PRBC NOW INFUSING, PATIENT HAS HAD NO FURTHER BM'S AND VERBALIZED THAT HE IS FEELING BETTER THIS AM. MAINTAINING BIOX 90'S ON 7L/NC. PATIENT GENEVA BIPAP 12/6 WELL WHILE SLEEPING, AND OFF AND ON T/O THE NIGHT WHEN FEELING SOB.
--- NOTE | 2019-08-25 08:40 | NUR ---
ASSUMED CARE OF PT AT 0700. PT A&O X 3, PLEASANT, STATED POOR SLEEP O/N. PRBC'S TRANSFUSING, NO S/S OF TRANSFUSION REACTION. DENIES PAIN. OXYGEN AT 7 L/MIN HI FLOW, HUMIDIFIED NC, SAT 93-95%. LUNG SOUNDS COARSE IN LLL. NEW ABRASION ON L KNEE, COVERED WITH FOAM DRESSING. IN GOOD SPIRITS, ASKED FOR HIS WINDOW SHAGES TO BE OPENED.
--- NOTE | 2019-08-25 08:45 | NUR ---
SPOKE TO DR. COELLO, ADVISED THAT AM LABS HAD BEEN DRAWN BEFORE BLOOD TRAMSFUSION STARTED. ORDERED POST TRANSFUSION H/H TO BE DRAWN AT 1000. ORDER PLACED.
[2019-08-25 10:06] LABS: Hemoglobin 8.5 g/dL (13.5-17.5)
--- NOTE | 2019-08-25 11:00 | NUR ---
DR COELLO AT BEDSIDE FOR ASSESSMENT. REPORTED POST TRANSFUSION H/H OF 8.5, NO FURTHER TRANSFUSION AT THIS TIME. WILL REPEAT H/H THIS EVENING. GAVE VERBAL ORDER TO RE-START LASIX GTT FOR UO OF 150-200 ML/HR.
--- NOTE | 2019-08-25 11:12 | NUR ---
LEFT MESSAGE WITH PALLIATIVE CARE TO SEE PT, POSSIBLE CHANGE IN CODE STATUS.
--- NOTE | 2019-08-25 12:25 | NUR ---
REASSESSMENT: DROWSY AT THIS TIME, AROUSES TO SPEECH, ORIENTED. AT BEDSIDE. LUNGS CLEAR IN BILATERAL UL, COARSE AT BASES. SEVERE REY, EVEN WITH SMALL MOVEMENTS. ON 7 L/MIN HIGH FLOW HUMIDIFIED NC, O2 SAT > 92%, BUT DESATS TO 85-87% WITH EXERTION OR SPEECH, BREATHING SHALLOWLY. SCD'S ON. CONDOM CATH DRAINING ADEQUATE URINE. LASIX GTT STARTED, TITRATE TO UO 150-200 ML/HR. POOR APPETITE, DID NOT EAT BREAKFAST OR LUNCH. NO FURTHER BM'S AT THIS TIME.
--- NOTE | 2019-08-25 16:08 | NUR ---
REASSESSMENT: SLEEPING DURING ASSESSMENT. DENIES PAIN. ATTEMPTED TO TITRATE OXYGEN DOWN, BUT SATS NOT MAINTAINED > 90%. LUNGS WITH CRACKLES IN BILATERAL BASES, CLEAR IN UPPER LOBES. ON O2 @ 7 L/MIN HIGH FLOW NC WITH HUMIDIFICATION, SAT 95%. AFEBRILE. ROCEPHIN D/C'D, STARTED ON VANCO AND CEFEPIME. PROTINX AT 10 ML/HR. CALL LIGHT AND POSSESSIONS IN REACH.
[2019-08-25 16:15] LABS: Hematocrit 24.4 % (37.0-53.0); Hemoglobin 8.1 g/dL (13.5-17.5)
[2019-08-25 16:37] LABS: Bun/Creatinine Ratio 44.6 (12.0-20.0); Creatinine, Blood 1.48 mg/dL (0.60-1.20); Potassium, Blood 3.7 mmol/L (3.5-5.5)
--- NOTE | 2019-08-25 16:40 | NUR ---
VANCO MYCIN ORDERED FOR 1400, NOT STARTED UNTIL 1600 D/T IV COMPATIBILITY ISSUES. PHARMACY NOTIFIED.
--- NOTE | 2019-08-25 17:32 | NUR ---
Pt resting in bed and denies pain at this time. Pt's and daughter are at bedside. Pt reports feeling fatigued from working with physical therapy. Pt reports significant SOB with exertion that improves with rest. Engaged in therapeutic discussion regarding advanced care planning and code status. 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 Educated on the importance of planning for the future as the disease process takes its coarse. Encouraged Pt to have routine conversations with doctors in order to plan accordingly. Discussed code status with Pt and family. Educated on life sustaining measures including risk factors and implications. Pt and family express appreciation of visit and state they have a lot of things to think about. Provided Palliative Care contact information per request from Pt and family. Pt and family express appreciation of visit and report no other concerns. Spoke with bedside RN Kimberly and discussed case. Palliative Care will remain available.
--- NOTE | 2019-08-25 19:42 | NUR ---
SHIFT SUMMARY: ORIENTED THROUGHOUT THE DAY, NAPPED X 1 FOR ABOUT 1.5 HOURS. DENIES PAIN. O2 @ 7 L/MIN HIGH FLOW NC, SATS 88-94%. GOOD URINE OUTPUT. NO BM THIS SHIFT. PALLIATIVE CARE TALKED WITH PT AND SPOUSE TODAY ABOUT GOALS OF CARE AND POSSIBLE CHANGE OF CODE STATUS. PROTONIX INFUSING @ 10 ML/HR, NS @ TKO.
--- NOTE | 2019-08-25 21:00 | NUR ---
ASSUMPTION OF CARE ASSUMED CARE OF PT @ 1900, PT AWAKE IN BED, ORIENTED TO SELF, FAMILY AT BEDSIDE, PLACE, EVENT AND FOLLOWING DIRECTIONS. PT ON HIGH FLOW NC WHILE AWAKE AND BIPAP WHILE SLEEPING (SEE FLOWSHEET). MONITOR SHOWS SINUS RHYTHM, HR 80'S, BP MILDLY LOW BUT STABLE. LASIX GTT ON HOLD PER DR COELLO, TO BE FOLLOWED UP WITH @ 2300. PT TOLERATING PO INTAKE BUT HAS POOR APPETITE. CONDOM CATHETER IN PLACE AND DRAING YELLOW URINE. PROTONIX GTT @ 10ml/hr. PT VERY WEAK BUT ABLE TO ASSIST IN SOME NURSING CARE AND WITH REPOSITIONING. PT DENIES PAIN AT THIS TIME.
--- NOTE | 2019-08-25 23:10 | NUR ---
CALL TO DR COELLO REGARDING URINE OUTPUT, AVERAGE OF 125ml/hr SINCE 1899. ORDER TO HOLD LASIX GTT.
--- NOTE | 2019-08-26 01:50 | NUR ---
BIPAP REMOVED AND 7L HUMIDIFIED AIR APPLIED PER PT REQUEST. PT STS IT FEELS LIKE HE IS SUFFOCATING ON THE BIPAP, O2 SATS STABLE.
[2019-08-26 03:58] LABS: BASOPHILS ABSOLUTE AUTO 0.07 K/mm3 (0.00-0.23); BASOPHILS PERCENT AUTO 0 % (0-2); EOSINOPHILS ABSOLUTE AUTO 0.16 K/mm3 (0.00-0.68); EOSINOPHILS PERCENT AUTO 1 % (0-6); Hematocrit 24.9 % (37.0-53.0); Hemoglobin 8.1 g/dL (13.5-17.5); IMMATURE GRAN ABSOLUTE AUTO 0.32 K/mm3 (0.00-0.10); IMMATURE GRAN PERCENT AUTO 1 % (0-1); LYMPHOCYTES ABSOLUTE AUTO 1.93 K/mm3 (0.84-5.20); LYMPHOCYTES PERCENT AUTO 7 % (21-46); MONOCYTES PERCENT AUTO 4 % (4-13); Mean Corpuscular HGB 30.1 pg (26.0-34.0); Mean Corpuscular HGB Conc 32.5 g/dL (31.5-36.5); Mean Platelet Volume 10.3 fL (9.1-12.4); NEUTROPHILS ABSOLUTE AUTO 24.41 K/mm3 (1.96-9.15); NEUTROPHILS PERCENT AUTO 87 % (41-73); NRBC ABSOLUTE 0.03 K/mm3 (0.00-0.02); NRBC Auto 0.1 /100 WBC (0.0-0.2); Platelet Count 287 K/mm3 (150-400); RDW Coefficient Variation 17.7 % (11.7-14.2); RDW Standard Deviation 57.9 fL (35.1-46.3); Red Blood Cell Count 2.69 M/mm3 (4.30-5.90); White Blood Cell Count 27.99 K/mm3 (4.00-11.30)
[2019-08-26 04:02] LABS: Mean Corpuscular Volume 93 fL (80-100)
[2019-08-26 04:18] LABS: Albumin, Blood 2.3 g/dL (3.4-5.0); Anion Gap 7 mmol/L (6-16); Blood Urea Nitrogen 62 mg/dL (8-24); Bun/Creatinine Ratio 41.3 (12.0-20.0); CO2, Blood 28 mmol/L (21-32); Calcium, Blood 7.9 mg/dL (8.5-10.1); Chloride, Blood 104 mmol/L (98-108); Glomerular Filtration Rate 47 (60-); Glucose, Blood 115 mg/dL (70-99); Magnesium, Blood 2.4 mg/dL (1.6-2.4); Phosphorus, Blood 3.3 mg/dL (2.5-4.9); Potassium, Blood 3.7 mmol/L (3.5-5.5); Sodium, Blood 139 mmol/L (136-145)
--- NOTE | 2019-08-26 06:14 | NUR ---
SHIFT SUMMARY NO ACUTE CHANGES THIS SHIFT. PT REMAINS ALERT AND ORIENTED, SLEPT ON AND OFF, TOLERATED BIPAP FOR SHORT PERIOD (SEE FLOWSHEET). PT ON 7L PER HIGH FLOW NC FOR MOST OF SHIFT TO MAINTAIN O2> 90%. MONITOR SHOWS SINUS RHYTHM, BP STABLE. CONDOM CATH REMAINS IN PLACE AND DRAINING YELLOW URINE. PT REMAINS PLEASANT AND COOPERATIVE, ASSISTS IN NURSING CARE WHEN POSSIBLE.
--- NOTE | 2019-08-26 11:02 | NUR ---
0800 PT HAS HAD O2 DEC. TO 5L PER RT AND SATS DEC TO MID 80 RANGE. O2 INC TO 7L AND NC PLACED IN MOUTH AND THEN BACK TO NC WITH SATS LOW 90 RANGE. PT ADMITS TO SL SOB THAT IMPROVED OVER TIME. PT HAS SOME NOTABLE ANXIETY AND POS DO TO PROLONGED STAY IN HOSP. AND ICU. CONDOM CATH PATENT BUT NEEDS TO BE REPLACED. L UPPER ARM/AC SITE INFILTRATED AND D/C, MIDLINE POWERGLIDE REQUESTED. FAMILY IN TO VISIT. PT HAS VERY LOW ENERGY LEVEL AND RESERVES.
--- NOTE | 2019-08-26 15:45 | NUR ---
PT ENERGY LEVEL IS POOR AND DESAT. WITH MINIMAL INTERUPTION IN O2 WITH EATING AND SIPS OF WATER. PT IS VERY PLEASANT AND WILLING BUT HAS LITTLE TO NO RESERVES. P.T./OT TO SEE AND EVALUATE PT STATUS AND DECLINED TO WORK WITH PT. SPUTUM COLLECTED.
--- NOTE | 2019-08-26 17:39 | NUR ---
PT TOLERATED BED BATH WELL W/O DESAT AT THIS TIME. I/O NOTED. PT CONT ON 7L NC. VSS. NO STOOLING NOTED. HAS BROUGHT IN SOME FOODS THAT PT ENJOYS, DUE TO PT NOT EATING VERY MUCH OF HOSP DIET. RUPERTO PG INFUSING PROTONIX, AND R UA 20G SL. CONDOM CATH YET INTACT. FAMILY IS IN ROOM.
--- NOTE | 2019-08-26 19:59 | NUR ---
ASSUMPTION OF CARE ASSUMED CARE OF PT @ 1900, PT AWAKE IN BED, FAMILY AT BEDSIDE, PT ORIENTED TO SELF, EVENT, PLACE, FAMILY AND FOLLOWING DIRECTIONS. OXYGEN SATURATIONS MAINTAINED>90% 7L PER HIGHFLOW NC, BIPAP WHILE SLEEPING, PT EXPRESSES RELUCTANCE TO WEAR BIPAP. ENCOURAGED PT TO WEAR BIPAP LONG HE COULD TOLERATE AND ASSURED HIM THAT BREAKS COULD BE PROVIDED NEEDED. MONITOR SHOWS SINUS RHYTHM, HR 90'S, STABLE BUT LOW BP, MAPS>65. PT REMAINS VERY WEAK, BUT ABLE TO ASSIST WITH NURSING CARE AND REPOSITIONING. PT USES CALL LIGHT APPROPRIATELY, MAKES NEEDS KNOWN, CALL LIGHT WITHIN REACH.
--- NOTE | 2019-08-26 21:25 | NUR ---
PT APPEARS MORE WITHDRAWN, EXPRESSES CONCERN OVER BECOMING INCREASINGLY TIRED WITH MINIMAL EXERTION. STS HE GETS TIRED SIMPLY TAKING HIS MEDICATIONS. ENCOURAGED PT TO TRY WEARING BIPAP TO HELP WITH OXYGENATION, PT AGRESS TO WEAR FOR ONE HOUR.
--- NOTE | 2019-08-27 01:48 | NUR ---
PT TO BEDPAN PER REQUEST, REMOVED BIPAP AND PLACED ON 9L HIGH FLOW NC FOR COMFORT, O2 SATURATIONS DECREASED TO 78%, PT PLACED BACK ON THE BIPAP. PT WITH INCREASED WOB. O2 SATURATIONS 93% ON BIPAP 12/6 FIO2 45%. PT REPORTS NUMBNESS TO HIS HANDS, FINGERS PURPLE IN COLOR, POOR CAP REFILL, BILAT RADIAL PULSES FAINT BUT PRESENT. PEDAL PULSES PRESENT, COLOR IN FEET APPEAR NORMAL, PT DENIES NUMBNESS OR TINGLING TO BLE. PT WILL REMAIN ON BIPAP, WILL CONTINUE TO MONITOR VITAL SIGNS, RESPIRATORY AND CARDIAC STATUS.
[2019-08-27 03:40] LABS: BASOPHILS ABSOLUTE AUTO 0.07 K/mm3 (0.00-0.23); BASOPHILS PERCENT AUTO 0 % (0-2); EOSINOPHILS ABSOLUTE AUTO 0.17 K/mm3 (0.00-0.68); EOSINOPHILS PERCENT AUTO 1 % (0-6); Hematocrit 19.2 % (37.0-53.0); Hemoglobin 6.1 g/dL (13.5-17.5); IMMATURE GRAN ABSOLUTE AUTO 0.57 K/mm3 (0.00-0.10); IMMATURE GRAN PERCENT AUTO 2 % (0-1); LYMPHOCYTES ABSOLUTE AUTO 1.43 K/mm3 (0.84-5.20); LYMPHOCYTES PERCENT AUTO 5 % (21-46); MONOCYTES ABSOLUTE AUTO 1.29 K/mm3 (0.16-1.47); MONOCYTES PERCENT AUTO 4 % (4-13); Mean Corpuscular HGB 30.8 pg (26.0-34.0); Mean Corpuscular HGB Conc 31.8 g/dL (31.5-36.5); Mean Platelet Volume 10.4 fL (9.1-12.4); NEUTROPHILS ABSOLUTE AUTO 27.88 K/mm3 (1.96-9.15); NEUTROPHILS PERCENT AUTO 89 % (41-73); NRBC ABSOLUTE 0.03 K/mm3 (0.00-0.02); NRBC Auto 0.1 /100 WBC (0.0-0.2); Platelet Count 234 K/mm3 (150-400); RDW Coefficient Variation 17.7 % (11.7-14.2); RDW Standard Deviation 59.5 fL (35.1-46.3); Red Blood Cell Count 1.98 M/mm3 (4.30-5.90); White Blood Cell Count 31.41 K/mm3 (4.00-11.30)
[2019-08-27 03:43] LABS: Mean Corpuscular Volume 97 fL (80-100)
[2019-08-27 03:56] LABS: Albumin, Blood 1.9 g/dL (3.4-5.0); Anion Gap 6 mmol/L (6-16); Blood Urea Nitrogen 55 mg/dL (8-24); Bun/Creatinine Ratio 40.4 (12.0-20.0); CO2, Blood 26 mmol/L (21-32); Calcium, Blood 7.6 mg/dL (8.5-10.1); Chloride, Blood 110 mmol/L (98-108); Creatinine, Blood 1.36 mg/dL (0.60-1.20); Glomerular Filtration Rate 52 (60-); Glucose, Blood 132 mg/dL (70-99); Phosphorus, Blood 3.5 mg/dL (2.5-4.9); Potassium, Blood 3.9 mmol/L (3.5-5.5); Sodium, Blood 142 mmol/L (136-145)
--- NOTE | 2019-08-27 06:28 | NUR ---
SHIFT SUMMARY PT AWAKE FOR MUCH OF SHIFT WITH BREIF PERIODS OF REST, REMAINS A&Ox4, PT WITH INCREASED SOB AND DECREASED TOLERANCE OF BREAKS FROM BIPAP TO MAINTAIN O2 SATURATIONS>90%. DISCOLORATION AND NUMBERS TO FINGERS CONTINUE. PT WITH TWO BLACK TARRY TO LIQUID STOOL THIS SHIFT, HYPOTENSIVE, MORNING HGB 6.1, CALL TO DR VILLALPANDO, ORDER TO TRANSFUSE 1 UNIT OF PR[facility], CURRENTLY INFUSING. PT USING CALL LIGHT APPROPRIATELY, CALL LIGHT WITHIN REACH.
--- NOTE | 2019-08-27 08:35 | NUR ---
PT IS A/O THIS AM BUT VERY FATIGUED FROM POOR SLEEP AND NOC SHIFT ACTIVITY. ATTEMPT TO PLACE PT ON NC O2 AT 7L WAS MADE AND THEN PT WAS RETURNED TO BIPAP AT 45 % AND SOON AFTER DEC TO 40% WITH SATS 92-95% WHILE SLEEPING/NAPPING. PT VS NOTED TO BE SOMEWHA SOFT NOTED BUT ADIQUATE AND WILL FOLLOW. PRBC INFUSING VIA PG RUPERTO. PT CONDOM CATH INPLACE AND DRAINING. SL HEEL IRRITATION NOTE W/O ABRASION AND PROTECTORS PLACE FOR COMFORT. EXTENDED CONVERSATION WAS HAD WITH PT RE PT STATUS AND DIRECTION FOR CODE STATUS. IS AWARE OF FRAGILE NATURE OF PT CONDITION AND WILL TALK WITH HIM WHEN HE AWAKENES RE HIS WISHES.
--- NOTE | 2019-08-27 11:13 | NUR ---
1010 DR CORONA IN TO VISIT WITH PT AND /FAMILY. PT EXPRESSED THAT HE WANTS TO GO ON "HOSPICE" AND DOES NOT "WANT TO DO THIS ANY LONGER". DR MOSHER ALSO MADE AWARE OF PT WISHES AND MILAN Loja RN CALLED. PT CURRENTLY ON 7LNC AND WILL DESAT WITH JUST MOUTH BREATHING VS. NASAL BREATHING.
--- NOTE | 2019-08-27 11:18 | NUR ---
1100 PT EXPRESSED INC SOB AND PLACED ON BIPAP WITH IMPROVED SATS BUT IS C/O AND HAVING STOOLING. BP LOW NOTED AND NS BOLUS REQUESTED SECOND DAUGHTER IS ARRIVING SHORTLY. PT REMAINS A/O BUT VERY WEAK AND FRAGILE. FAMILY AT BEDSIDE.
--- NOTE | 2019-08-27 12:44 | NUR ---
FAMILY HAS SPOKEN TO MILAN Fernandes RN AND WILL MOVE TO COMFORT AND DNR AT PT REQUEST. BP HAS BEEN 70 AND 80 SBP WITH HR 90 RANGE AND SATS 90+ ON 7L NC AT PT REQUEST. PT HAS HAD LARGE TARRY THIN STOOL THAT WAS CLEANED UP AND CONDOM CATH REPOSITIONED DRAINING DARK YELLOW. PT REMAINS ALERT AND ORIENTED AND ABLE TO VISIT SHORT SENTENCES AND MAKE HIS WISHES KNOWN. IVF WILL BE STOPPED. FAMILY AT BEDSIDE.
--- NOTE | 2019-08-27 13:23 | NUR ---
REPORTED OFF TO JAUN HOLLINGSWORTH AND SPOKE WITH FAMILY RE CODE STATUS CHANGES AND CHANGES OF MEDICATION. PT ON O2 7L HFN AND TOLERATING AT THIS TIME.
--- NOTE | 2019-08-27 14:12 | NUR ---
family at bedside pt talking to started to turn ashen and lois down. pt family chose [facility].
--- NOTE | 2019-08-27 14:14 | NUR ---
UPDATE: ASSUMED CARE OF PT @ 1325, RECEVIED REPORT FROM MANUEL HOLLINGSWORTH. FAMILY AT BEDSIDE. PT WAS ALERT AND ORIENTED TO SELF AND FAMILY AND FOLLOWING DIRECTIONS. HE WAS ON 7L OF O2. HEART MONITOR AND BP MONITOR WAS DISCONTINUED PER COMFORT ORDERS. PT HAD TWO LARGE DARK MAX STOOLS. PT WAS HAVING INCREASED WORK OF BREATHING, MILAN HOLLINGSWORTH (PALLATIVE CARE AT BEDSIDE), PT SHOWED S/S ON PAIN, MEDS GIVEN PER EMAR. PT EXPRIRED @ 0927, NOTIFIED. CALLED, NO ANSWER WILL ATTEMPT TO INFORM HER AT A LATER TIME.
== END 2019-08-27 15:50 | DRG 377 ==
LOC: ER 06:58 → ICUE 06:59 → MEDS 06:59 → ICUE 19:32
PROVIDERS: Emergency Medicine; Internal Medicine; Internal Medicine Critical Care Medicine; Internal Medicine Gastroenterology; Internal Medicine Pulmonary Disease; ADMIT Family Medicine
PROC: 30233N1 Transfusion of Nonautologous Red Blood Cells into Peripheral Vein, Percutaneous Approach (ICD-10-PCS; 2019-08-14)
PROC: 0D998ZX Drainage of Duodenum, Via Natural or Artificial Opening Endoscopic, Diagnostic (ICD-10-PCS; 2019-08-15)
PROC: 06HY33Z Insertion of Infusion Device into Lower Vein, Percutaneous Approach (ICD-10-PCS; 2019-08-15)
PROC: 0DB68ZX Excision of Stomach, Via Natural or Artificial Opening Endoscopic, Diagnostic (ICD-10-PCS; 2019-08-15 09:00)
PROC: 5A09557 Assistance with Respiratory Ventilation, Greater than 96 Consecutive Hours, Continuous Positive Airway Pressure (ICD-10-PCS; 2019-08-17)
PROC: 0D598ZZ Destruction of Duodenum, Via Natural or Artificial Opening Endoscopic (ICD-10-PCS; principal; 2019-08-23 17:30)
PROC: 30233N1 Transfusion of Nonautologous Red Blood Cells into Peripheral Vein, Percutaneous Approach (ICD-10-PCS; 2019-08-25)
PROC: 30233N1 Transfusion of Nonautologous Red Blood Cells into Peripheral Vein, Percutaneous Approach (ICD-10-PCS; 2019-08-26)
DX: K26.4 Chronic or unspecified duodenal ulcer with hemorrhage (principal); J96.01 Acute respiratory failure with hypoxia; J69.0 Pneumonitis due to inhalation of food and vomit; I21.4 Non-ST elevation (NSTEMI) myocardial infarction; A41.9 Sepsis, unspecified organism; R65.21 Severe sepsis with septic shock; D62 Acute posthemorrhagic anemia; E87.1 Hypo-osmolality and hyponatremia; I13.0 Hypertensive heart and chronic kidney disease with heart failure and stage 1 through stage 4 chronic kidney disease, or unspecified chronic kidney disease; R04.2 Hemoptysis; Z51.5 Encounter for palliative care; K44.9 Diaphragmatic hernia without obstruction or gangrene; K22.2 Esophageal obstruction; N18.3 Chronic kidney disease, stage 3 (moderate); J44.9 Chronic obstructive pulmonary disease, unspecified; I25.709 Atherosclerosis of coronary artery bypass graft(s), unspecified, with unspecified angina pectoris; I95.9 Hypotension, unspecified; I50.810 Right heart failure, unspecified; D69.6 Thrombocytopenia, unspecified; E83.39 Other disorders of phosphorus metabolism; E78.5 Hyperlipidemia, unspecified; G47.33 Obstructive sleep apnea (adult) (pediatric); I73.9 Peripheral vascular disease, unspecified; Z95.1 Presence of aortocoronary bypass graft; Z95.5 Presence of coronary angioplasty implant and graft; Z79.82 Long term (current) use of aspirin; Z79.02 Long term (current) use of antithrombotics/antiplatelets; Z87.891 Personal history of nicotine dependence
CPT/HCPCS: 0099U; 36415; 36430; 36556; 36600; 70450; 71045; 71250; 71260; 80048; 80053; 80069; 81001; 82272; 82803; 83735; 83880; 84100; 84145; 84484; 85014; 85018; 85025; 85027; 86850; 86870; 86900; 86901; 86902; 86905; 86922; 86923; 87070; 87086; 87205; 88305; 88342; 93005; 93010; 93306; 93308; 93321; 94640; 94660; 94667; 96365; 96368; 96375; 97110; 97162; 97167; 97530; 99285-25; A9270-GY; C1751; C9113; G0378; J0171; J0692; J0696; J1430; J1610; J1644; J1720; J1940; J2270; J2370; J2405; J2704; J3370; J3480; J7030; J7050; J7060; J7120; P9016; Q9967